=== PATIENT | male | born 1995 | race Two or more races ===

== ENCOUNTER 2023-05-31 02:43 | Emergency (ER) | payer MEDICAID, OTHER ==
[~2023-05-31] VITALS: Ht 190.5 cm; Wt 159.3 kg
[2023-05-31] MEDS ORDERED: IBUP-1455 PO (04:22)
[2023-05-31] MEDS ORDERED: KETOROLAC TROMETH 30 MG/ML 1ML VIAL IM ONE (04:30)
[2023-05-31 04:36] VITALS: BP 137/82; PULSE 83; RESP 18; TEMP 98.6; O2SAT 96
== END 2023-05-31 05:25 | disposition home or self-care (01) ==
LOC: ER 02:43
DX: M54.50 Low back pain, unspecified (principal); Z79.1 Long term (current) use of non-steroidal anti-inflammatories (NSAID)
CPT/HCPCS: 96372; 99283; J1885

== ENCOUNTER 2023-06-05 08:18 | Emergency (ER) | payer MEDICAID ==
[~2023-06-05] VITALS: Ht 190.5 cm; Wt 165.1 kg
[~2023-06-05 08:18] MED LIST: IBUP-1455 PO
[2023-06-05] MEDS ORDERED: KETOROLAC TROMETH 60MG/2ML VIAL IM ONE (09:15)
[2023-06-05] MEDS ORDERED: HYDROcodone-ACET 10/325MG TAB PO ONE (09:15)
[2023-06-05] MEDS ORDERED: GABA-339 PO (09:16)
[2023-06-05] MEDS ORDERED: TRAM50TA2 PO (09:16)
[2023-06-05 09:22] VITALS: O2SAT 98
[2023-06-05 09:39] VITALS: BP 145/92; PULSE 70; RESP 18; O2SAT 98
== END 2023-06-05 09:43 | disposition home or self-care (01) ==
LOC: ER 08:18
DX: M54.16 Radiculopathy, lumbar region (principal); G89.29 Other chronic pain; M54.42 Lumbago with sciatica, left side; M54.41 Lumbago with sciatica, right side
CPT/HCPCS: 96372; 99283; J1885

== ENCOUNTER 2023-06-12 14:48 | Inpatient (IN) | payer MEDICAID ==
[~2023-06-12] VITALS: Ht 188 cm; Wt 164.5 kg
[~2023-06-12 14:48] MED LIST changes: +GABA-339 PO; +TRAM50TA2 PO
[2023-06-12 17:26] LABS: Basophils # (auto) 0 10 ^3/uL (0-0.2); Basophils % (auto) 0.5 % (0.0-2.0); Eosinophils # (auto) 0.1 10 ^3/uL (0-0.8); Eosinophils % (auto) 1.1 % (0.0-7.0); Hematocrit 44.1 % (41.0-53.0); Hemoglobin 14.4 g/dL (13.5-17.5); Lymphocytes # (auto) 2.3 10 ^3/uL (0.4-5.4); Lymphocytes % (auto) 24.3 % (10.0-50.0); Mean Corpuscular Hemoglobin 27.4 pg (28.0-32.0); Mean Corpuscular Hgb Conc. 32.7 g/dL (32.0-36.0); Mean Corpuscular Volume 83.8 fL (80.0-100.0); Monocytes # (auto) 0.5 10 ^3/uL (0-1.3); Monocytes % (auto) 5.8 % (0.0-12.0); Neutrophils # (auto) 6.4 10 ^3/uL (1.6-8.6); Neutrophils % (auto) 68.3 % (37.0-80.0); Nucleated Red Blood Cells % 0.1 %; Red Blood Cells 5.26 10^6/uL (4.5-5.90); Red Cell Distribution Width 14.8 % (11.8-14.3); White Blood Cell 9.3 10^3/uL (4.4-10.8)
[2023-06-12 17:40] LABS: INR 1.01 (0.9-1.15); Prothrombin Time 10.6 sec (9.3-11.8)
[2023-06-12 17:49] LABS: Potassium 4.1 mmol/L (3.5-5.1)
[2023-06-12 17:53] LABS: Albumin 3.6 g/dL (3.4-5.0); BUN/Creatinine Ratio 21.1 (10.0-20.0); Calcium 9.3 mg/dL (8.5-10.1)
[2023-06-12 17:55] LABS: Bilirubin, Total 0.3 mg/dL (0.2-1.0); Total Protein 8.8 g/dL (6.4-8.2)
[2023-06-12 18:23] VITALS: PULSE 76; RESP 12; O2SAT 97
[2023-06-12] MEDS ORDERED: IBUPROFEN 800 MG TAB PO PRN (19:00)
[2023-06-12] MEDS ORDERED: MORPHINE SULFATE INJ 2 MG/ml SYRG IV PRN (19:00)
[2023-06-12 19:30] VITALS: PULSE 63; RESP 16; O2SAT 98
[2023-06-12] MEDS: SODIUM CHLORIDE 0.9% 1,000 ML IV SCH (19:43)
[2023-06-12] MEDS: traMADol HCL 50 MG TAB PO SCH (23:32)
[2023-06-12] MEDS: GABAPENTIN 300 MG CAP PO SCH (23:32)
[2023-06-13] VITALS (7 sets, daily range): BP systolic 106–141; BP diastolic 50–76; PULSE 54–61; RESP 15–20; TEMP 98.1–98.5; O2SAT 94–98
[2023-06-13] MEDS: SODIUM CHLORIDE 0.9% 1,000 ML IV SCH ×3 (03:15→19:15)
[2023-06-13 05:04] LABS: Basophils # (auto) 0 10 ^3/uL (0-0.2); Basophils % (auto) 0.4 % (0.0-2.0); Eosinophils # (auto) 0.1 10 ^3/uL (0-0.8); Eosinophils % (auto) 1.1 % (0.0-7.0); Hematocrit 38.8 % (41.0-53.0); Hemoglobin 13.5 g/dL (13.5-17.5); Lymphocytes # (auto) 2.7 10 ^3/uL (0.4-5.4); Lymphocytes % (auto) 32.5 % (10.0-50.0); Mean Corpuscular Hemoglobin 28.7 pg (28.0-32.0); Mean Corpuscular Hgb Conc. 34.7 g/dL (32.0-36.0); Mean Corpuscular Volume 82.5 fL (80.0-100.0); Monocytes # (auto) 0.5 10 ^3/uL (0-1.3); Monocytes % (auto) 6.4 % (0.0-12.0); Neutrophils # (auto) 4.9 10 ^3/uL (1.6-8.6); Neutrophils % (auto) 59.6 % (37.0-80.0); Red Cell Distribution Width 14.8 % (11.8-14.3); White Blood Cell 8.3 10^3/uL (4.4-10.8)
[2023-06-13 05:25] LABS: Potassium 3.9 mmol/L (3.5-5.1)
[2023-06-13 05:32] LABS: Albumin 3.2 g/dL (3.4-5.0); BUN/Creatinine Ratio 20.5 (10.0-20.0); Bilirubin, Total 0.5 mg/dL (0.2-1.0); Calcium 9.1 mg/dL (8.5-10.1); Total Protein 7.9 g/dL (6.4-8.2)
[2023-06-13] MEDS: ENOXAPARIN SOD 40 MG/0.4 ML SYRINGE SC SCH (10:11)
[2023-06-13] MEDS: PANTOPRAZOLE 40 MG TAB PO SCH (10:12)
[2023-06-13] MEDS: traMADol HCL 50 MG TAB PO SCH ×2 (10:12→21:09)
[2023-06-13] MEDS: GABAPENTIN 300 MG CAP PO SCH ×2 (10:12→21:09)
[2023-06-14] MEDS: SODIUM CHLORIDE 0.9% 1,000 ML IV SCH ×2 (03:15→11:25)
[2023-06-14 05:00] VITALS: BP 111/67; PULSE 61; RESP 19; TEMP 97.7; O2SAT 95
[2023-06-14 09:00] VITALS: BP 127/67; PULSE 62; RESP 17; TEMP 97.8; O2SAT 98
[2023-06-14] MEDS: traMADol HCL 50 MG TAB PO SCH (09:16)
[2023-06-14] MEDS: GABAPENTIN 300 MG CAP PO SCH (09:16)
[2023-06-14] MEDS: ENOXAPARIN SOD 40 MG/0.4 ML SYRINGE SC SCH (09:17)
[2023-06-14] MEDS: PANTOPRAZOLE 40 MG TAB PO SCH (09:17)
[2023-06-14 13:00] VITALS: BP 125/71; PULSE 73; RESP 18; TEMP 98; O2SAT 96
[2023-06-14] MEDS ORDERED: NAP500T PO (16:30)
[2023-06-14 17:01] VITALS: BP 122/60; PULSE 66; RESP 18; TEMP 98.2; O2SAT 99
== END 2023-06-14 18:51 | disposition home or self-care (01) | DRG 347 ==
LOC: ER 14:48 → OVERFLOW 18:54 → CENTRAL 23:39
PROVIDERS: ADMIT Nurse Practitioner Family; ATTEND Internal Medicine
DX: M48.061 Spinal stenosis, lumbar region without neurogenic claudication (principal); E66.01 Morbid (severe) obesity due to excess calories; G89.29 Other chronic pain; Z68.42 Body mass index [BMI] 45.0-49.9, adult
CPT/HCPCS: 36415; 72148; 80053; 85025; 85610; 96360; 96361; G0378

== ENCOUNTER 2024-05-03 12:01 | Inpatient (IN) | payer SELFPAY ==
[~2024-05-03] VITALS: Ht 188 cm; Wt 117.0 kg
[~2024-05-03 12:01] MED LIST changes: +CYCL-837 PO; +NAP500T PO
[2024-05-03 12:22] LABS: Basophils # (auto) 0 10 ^3/uL (0-0.2); Basophils % (auto) 0.5 % (0.0-2.0); Eosinophils # (auto) 0.1 10 ^3/uL (0-0.8); Eosinophils % (auto) 1.2 % (0.0-7.0); Hematocrit 42.8 % (41.0-53.0); Hemoglobin 14.6 g/dL (13.5-17.5); Lymphocytes # (auto) 2.4 10 ^3/uL (0.4-5.4); Lymphocytes % (auto) 26.1 % (10.0-50.0); Mean Corpuscular Hemoglobin 28.6 pg (28.0-32.0); Mean Corpuscular Hgb Conc. 34.1 g/dL (32.0-36.0); Mean Corpuscular Volume 83.8 fL (80.0-100.0); Monocytes # (auto) 0.8 10 ^3/uL (0-1.3); Monocytes % (auto) 8.7 % (0.0-12.0); Neutrophils % (auto) 63.5 % (37.0-80.0); Red Blood Cells 5.11 10^6/uL (4.5-5.90); Red Cell Distribution Width 15.2 % (11.8-14.3); White Blood Cell 9.4 10^3/uL (4.4-10.8)
[2024-05-03 12:35] LABS: Chloride 106 mmol/L (98-107); Potassium 4.1 mmol/L (3.5-5.1); Sodium 138 mmol/L (136-145)
[2024-05-03 12:36] LABS: Anion Gap 5 (5-15); Carbon Dioxide 27 mmol/L (20-30)
[2024-05-03 12:37] LABS: Calcium 9.8 mg/dL (8.5-10.1)
[2024-05-03 12:41] LABS: BUN/Creatinine Ratio 15.7 (10.0-20.0); Blood Urea Nitrogen 13 mg/dL (9-23); Glucose 101 mg/dL (74-106)
[2024-05-03] MEDS: KETOROLAC TROMETH 60MG/2ML VIAL IM ONE (12:56)
[2024-05-03 12:58] VITALS: RESP 19; O2SAT 97
[2024-05-03] MEDS ORDERED: ENOXAPARIN SOD 150 MG/1 ML SYRINGE SC ONE (14:15)
[2024-05-03] MEDS: ENOXAPARIN SOD 150 MG/1 ML SYRINGE SC SCH (14:53)
[2024-05-03] MEDS ORDERED: NITROGLYCERIN 0.4 MG SL TAB SL PRN (15:15)
[2024-05-03] MEDS ORDERED: ONDANSETRON HCL 4 MG/2 ML VIAL IV PRN (15:15)
[2024-05-03] MEDS ORDERED: DOCUSATE SOD 100 MG CAP PO PRN (15:15)
[2024-05-03] MEDS ORDERED: MORPHINE SULFATE INJ 2 MG/ml SYRG IV PRN ×2 (15:15)
[2024-05-03 15:20] VITALS: PULSE 62; RESP 16; O2SAT 96
[2024-05-03] MEDS: IOHEXOL 350 MG/ML 100ML IJ ONE (15:37)
[2024-05-03] MEDS: SODIUM CHLORIDE 0.9% 1,000 ML IV SCH (15:42)
[2024-05-03] MEDS: NEOMYCIN-BACITRACIN-POLYM UNITDOSE PKG TOP OINT TOP ONE (15:42)
[2024-05-03 17:20] VITALS: BP 120/66; PULSE 50; RESP 16; TEMP 98; O2SAT 95
[2024-05-03 18:10] LABS: Urine Amorphous Crystal FEW /hpf (None Seen); Urine Bacteria FEW /hpf (None Seen); Urine Blood Negative /uL (Negative); Urine Clarity Turbid (Clear); Urine Color Colorless (Yellow); Urine Mucus FEW (None Seen); Urine Protein, UAD 1+ (Negative); Urine Specific Gravity 1.028 (1.001-1.035); Urine Urobilinogen 2 mg/dL (Negative); Urine WBC 12 /hpf (0 - 3); Urine WBC Clumps PRESENT /hpf (None Seen); Urine pH 7.5 (5.0-9.0)
[2024-05-03 21:00] VITALS: BP 111/34; PULSE 56; RESP 18; TEMP 98.2; O2SAT 97
[2024-05-04 01:00] VITALS: BP 122/75; PULSE 73; RESP 18; TEMP 97.9; O2SAT 99
[2024-05-04 05:00] VITALS: BP 105/72; PULSE 69; RESP 17; TEMP 98.1; O2SAT 98
[2024-05-04 06:23] LABS: Alanine Aminotransferase 19 U/L (7-40); Albumin 3.8 g/dL (3.2-4.8); Alkaline Phosphatase 52 U/L (46-116); Anion Gap 6 (5-15); Aspartate Aminotransferase 13 U/L (13-40); BUN/Creatinine Ratio 16.9 (10.0-20.0); Bilirubin, Total 0.8 mg/dL (0.2-1.0); Blood Urea Nitrogen 14 mg/dL (9-23); Calcium 9.2 mg/dL (8.7-10.4); Carbon Dioxide 26 mmol/L (20-30); Chloride 107 mmol/L (98-107); Glucose 91 mg/dL (74-106); Potassium 4.1 mmol/L (3.5-5.1); Sodium 139 mmol/L (136-145)
[2024-05-04 06:25] LABS: Basophils # (auto) 0 10 ^3/uL (0-0.2); Basophils % (auto) 0.4 % (0.0-2.0); Eosinophils # (auto) 0.2 10 ^3/uL (0-0.8); Eosinophils % (auto) 2.1 % (0.0-7.0); Hematocrit 38.2 % (41.0-53.0); Hemoglobin 13.1 g/dL (13.5-17.5); Lymphocytes # (auto) 2.6 10 ^3/uL (0.4-5.4); Lymphocytes % (auto) 32.8 % (10.0-50.0); Mean Corpuscular Hemoglobin 28.7 pg (28.0-32.0); Mean Corpuscular Hgb Conc. 34.4 g/dL (32.0-36.0); Mean Corpuscular Volume 83.5 fL (80.0-100.0); Monocytes # (auto) 0.7 10 ^3/uL (0-1.3); Monocytes % (auto) 8.4 % (0.0-12.0); Neutrophils # (auto) 4.4 10 ^3/uL (1.6-8.6); Neutrophils % (auto) 56.3 % (37.0-80.0); Nucleated Red Blood Cells % 0.1 %; Red Blood Cells 4.57 10^6/uL (4.5-5.90); Red Cell Distribution Width 14.5 % (11.8-14.3); White Blood Cell 7.9 10^3/uL (4.4-10.8)
[2024-05-04 08:46] LABS: Amphetamine Screen, Urine Neg (NEGATIVE)
[2024-05-04 08:47] LABS: Barbiturate Scree,Urine Neg (NEGATIVE); Benzodiazephine Screen, Urine Neg (NEGATIVE); Cocaine Screen, Urine Neg (NEGATIVE)
[2024-05-04 08:48] LABS: Cannabinoid Screen, Urine Pos (NEGATIVE); Opiate Scree,Urine Neg (NEGATIVE); Phencyclidine Screen, Urine Neg (NEGATIVE)
[2024-05-04 08:48] LABS: INR 1.08 (0.9-1.15); Magnesium 1.9 mg/dL (1.6-2.6); Partial Thromboplastin Time 34.6 SEC (24.5-34.5); Prothrombin Time 11.4 sec (9.3-11.8)
[2024-05-04 08:50] LABS: Phosphorus 3.5 mg/dL (2.4-5.1)
[2024-05-04 09:20] VITALS: BP 126/77; PULSE 72; RESP 16; TEMP 98.2; O2SAT 95
[2024-05-04] MEDS: PANTOPRAZOLE 40 MG TAB PO ONE (09:28)
[2024-05-04] MEDS ORDERED: NEOMYCIN-BACITRACIN-POLYM UNITDOSE PKG TOP OINT TOP SCH (10:00)
[2024-05-04 12:18] LABS: Free T4 (Free Thyroxine) 1.05 ng/dL (0.89-1.76); T3 Total 1.17 ng/mL (0.60-1.81)
[2024-05-04 12:55] LABS: COVID19 ANTIGEN SOFIA FIA NEGATIVE (NEGATIVE); Rapid Influenza A Negative (Negative); Rapid Influenza B Negative (Negative)
[2024-05-04 13:00] VITALS: BP 144/97; PULSE 61; RESP 17; TEMP 97.6; O2SAT 95
[2024-05-04] MEDS: ERGOCALCIFEROL 50,000 UNIT(1.25MG) CAP PO SCH (15:30)
[2024-05-04] MEDS: CYANOCOBALAMIN 500 MCG TAB PO ONE (15:30)
[2024-05-04] MEDS: CEPHALEXIN 250 MG CAP PO ONE (15:30)
[2024-05-04] MEDS ORDERED: ERGO1CAP23 PO (16:43)
[2024-05-04] MEDS ORDERED: IBUP-1453 PO (16:43)
[2024-05-04] MEDS ORDERED: CEPH250C PO (16:43)
[2024-05-04] MEDS ORDERED: CYAN500T3 PO (16:43)
[2024-05-04 17:00] VITALS: BP 122/63; PULSE 59; RESP 16; TEMP 97.8; O2SAT 95
[2024-05-04] MEDS ORDERED: CEPHALEXIN 250 MG CAP PO SCH (18:00)
[2024-05-05] MEDS ORDERED: PANTOPRAZOLE 40 MG TAB PO SCH (06:00)
[2024-05-05] MEDS ORDERED: CYANOCOBALAMIN 500 MCG TAB PO SCH (10:00)
[2024-05-05] MEDS ORDERED: ENOXAPARIN SOD 40 MG/0.4 ML SYRINGE SC SCH (10:00)
== END 2024-05-04 17:30 | disposition home or self-care (01) | DRG 605 ==
LOC: ER 12:01 → OVERFLOW 15:21 → WEST WING 17:28
PROVIDERS: ADMIT Internal Medicine; ATTEND Internal Medicine
DX: S91.301A Unspecified open wound, right foot, initial encounter (principal); N39.0 Urinary tract infection, site not specified; R07.9 Chest pain, unspecified; M54.40 Lumbago with sciatica, unspecified side; E07.81 Sick-euthyroid syndrome; E66.9 Obesity, unspecified; Z20.822 Contact with and (suspected) exposure to COVID-19; X58.XXXA Exposure to other specified factors, initial encounter; F12.10 Cannabis abuse, uncomplicated; M79.18 Myalgia, other site; Y93.89 Activity, other specified; Y92.89 Other specified places as the place of occurrence of the external cause; Y99.8 Other external cause status; Z68.33 Body mass index [BMI] 33.0-33.9, adult
CPT/HCPCS: 36415; 71045; 71275; 73630; 80048; 80053; 80061; 80307; 81001; 82306; 82607; 83036; 83735; 84100; 84439; 84443; 84480; 85025; 85379; 85610; 85730; 87426; 87804; 93005; 93306; 93970; G0378; J1885

== ENCOUNTER 2024-06-03 07:19 | Emergency (ER) | payer SELFPAY ==
[~2024-06-03] VITALS: Ht 188 cm; Wt 157.7 kg
[~2024-06-03 07:19] MED LIST changes: +CEPH250C PO; +CYAN500T3 PO; -CYCL-837 PO; +ERGO1CAP23 PO; -GABA-339 PO; +IBUP-1453 PO; -IBUP-1455 PO; -NAP500T PO; -TRAM50TA2 PO
[2024-06-03 07:59] VITALS: BP 118/61; PULSE 55; RESP 20; TEMP 98.2; O2SAT 97
[2024-06-03] MEDS ORDERED: IBUP-1455 PO (08:07)
[2024-06-03] MEDS ORDERED: CYCL-837 PO (08:07)
[2024-06-03] MEDS ORDERED: PRED20TA2 PO (08:07)
[2024-06-03] MEDS: methylPREDNISolone SOD SUCC 125 MG/2 ML VL IM ONE (08:25)
[2024-06-03] MEDS: KETOROLAC TROMETH 30 MG/ML 1ML VIAL IM ONE (08:26)
== END 2024-06-03 08:50 | disposition home or self-care (01) ==
LOC: ER 07:19
DX: M54.32 Sciatica, left side (principal); Z79.1 Long term (current) use of non-steroidal anti-inflammatories (NSAID); Z79.899 Other long term (current) drug therapy
CPT/HCPCS: 96372; 99284; J1885; J2919

== ENCOUNTER 2024-06-23 07:08 | Emergency (ER) | payer SELFPAY ==
[~2024-06-23] VITALS: Ht 182.9 cm; Wt 160.6 kg
[~2024-06-23 07:08] MED LIST changes: +CYCL-837 PO; +IBUP-1455 PO; +PRED20TA2 PO
[2024-06-23] MEDS ORDERED: LIDO5DIS21 TOP (08:48)
[2024-06-23] MEDS ORDERED: ACET500T58 PO (08:48)
[2024-06-23] MEDS ORDERED: TRAM50TA2 PO (08:48)
[2024-06-23 09:15] VITALS: BP 147/75; PULSE 66; RESP 18; TEMP 97.4; O2SAT 98
== END 2024-06-23 09:16 | disposition home or self-care (01) ==
LOC: ER 07:08
DX: M54.16 Radiculopathy, lumbar region (principal); Z79.1 Long term (current) use of non-steroidal anti-inflammatories (NSAID); Z79.899 Other long term (current) drug therapy; Z79.52 Long term (current) use of systemic steroids

== ENCOUNTER 2025-05-27 05:53 | Emergency (ER) | payer MEDICAID ==
[~2025-05-27] VITALS: Ht 185.4 cm; Wt 161.4 kg
[~2025-05-27 05:53] MED LIST changes: +ACET500T58 PO; +LIDO5DIS21 TOP; +TRAM50TA2 PO
--- NOTE | 2025-05-27 06:33 | ED.PDOC ---
Musculoskeletal HPI Comments A 29-YEAR-OLD MALE PRESENTS WITH A CHIEF COMPLAINT OF LEFT KNEE PAIN X 2 WEEKS. PATIENT STATES THAT THE PAIN IS SHARP, SHOOTING PAIN AND IS MADE WORSE WHEN AMBULATING. PATIENT RATES CURRENT PAIN 8/10 AT THIS TIME. PATIENT MENTIONS THAT HE TOOK EXCEDRIN FOR PAIN WITHOUT RELIEF. PATIENT IS AMBULATORY WITH A LIMP. PER PT, HE DOES A LOT OF WALKING AND PHYSICAL ACTIVITY EVERYDAY. PT DENIES FALL INJURY, CHEST PAIN, HEADACHE, ABDOMEN PAIN, NAUSEA, VOMITING, DIARRHEA, SOB, OR FEVER. NO OTHER SYMPTOMS OR MODIFYING FACTORS PRESENT AT THIS TIME. Chief Complaint: Lower Extremity Time Seen by MD: 06:30 Primary Care Provider: NONE Reviewed Notes: Nurses Notes, Medications, Allergies Allergies: Coded Allergies: NO KNOWN ALLERGIES (Unverified , 05/31/23) Home Meds Active Scripts Acetaminophen (Acetaminophen) 500 Mg Tab, 500 MG PO TIDP PRN for 10 Days, #30 TAB 0 Refills Prov:NASIM CASAS NP 06/23/24 Lidocaine (LIDODERM 5% TOPICAL PATCH) 1 Patch Ph, 1 PATCH TOP DAILY for 30 Days, #30 PATCH 0 Refills Prov:NASIM CASAS NP 06/23/24 Tramadol Hcl (Tramadol Hcl) 50 Mg Tab, 50 MG PO Q6HPRN PRN for 7 Days, #28 TAB 0 Refills Prov:NASIM CASAS NP 06/23/24 Cyclobenzaprine Hcl (Cyclobenzaprine Hcl) 5 Mg Tab, 1 TAB PO QHSP PRN for 30 Days, #30 TAB 0 Refills Prov:NASIM CASAS NP 06/03/24 Prednisone (Prednisone) 20 Mg Tab, 40 MG PO DAILY for 5 Days, #10 TAB 0 Refills Prov:NASIM CASAS NP 06/03/24 Ibuprofen Micronized (Ibuprofen) 800 Mg Tab, 800 MG PO TIDWMEALS for 14 Days, #42 TAB 0 Refills Prov:NASIM CASAS NP 06/03/24 Ibuprofen (Ibuprofen) 400 Mg Tab, 1 TAB PO Q6HPRN for 10 Days, #40 TAB Prov:ANNETTE CAPUTO RESIDENT 05/04/24 Ergocalciferol (VITAMIN D 42225 UNIT) 50,[place], [address] UNIT PO Q7D for 30 Days, #10 CAP Prov:ANNETTE CAPUTO 05/04/24 Cyanocobalamin (Gnp Vitamin B12) 500 Mcg Tab, 1000 MCG PO DAILY for 30 Days, #60 TAB Prov:ANNETTE CAPUTO 05/04/24 Cephalexin (KEFLEX CAPSULE) 250 Mg Cp, 250 MG PO Q6HR for 5 Days, #20 CAP Prov:ANNETTE CAPUTO 05/04/24 Information Source: Patient Mode of Arrival: Ambulatory Location: Left Extremity Location: Knee Timing: Weeks Prehospital treatment: None Severity: Moderate Able to Move Extremity: Yes Bear Weight: Fully Pain: Moderate Hand Dominance: Right Mechanism: No Trauma Circumstances: Spontaneous Onset of Symptoms: Spontaneous Symptoms: Pain DVT Risk Factors: NONE Last Tetanus: UTD Associated signs and symptoms: Knee pain Past Medical History PAST MEDICAL HISTORY: Denies Surgical History: Denies all surgeries Family History Family History: Reviewed,noncontributory to illness Social History Smoker: Cigarettes Alcohol: Denies ETOH Use Drugs: Denies Drug Use Lives In: Home Constitutional: denies: chills, diaphoresis, fatigue, fever, malaise, sweats, weakness, others EENTM: denies: blurred vision, double vision, ear bleeding, ear discharge, ear drainage, ear pain, ear ringing, eye pain, eye redness, hearing loss, mouth pain, mouth swelling, nasal discharge, nose bleeding, nose congestion, nose pain, photophobia, tearing, throat pain, throat swelling, voice changes, others Respiratory: denies: cough, hemoptysis, orthopnea, SOB at rest, shortness of breath, SOB with excertion, stridor, wheezing, others Cardiovascular: denies: chest pain, dizzy spells, diaphoresis, Dyspnea on exertion, edema, irregular heart beat, left arm pain, lightheadedness, palpitations, PND, syncope, others Gastrointestinal: denies: abdomen distended, abdominal pain, blood streaked bowels, constipated, diarrhea, dysphagia, difficulty swallowing, hematemesis, melena, nausea, poor appetite, poor fluid intake, rectal bleeding, rectal pain, vomiting, others Genitourinary: denies: burning, dysuria, flank pain, frequency, hematuria, incontinence, penile discharge, penile sore, pain, testicle pain, testicle swelling, urgency, others Neurological: denies: dizziness, fainting, headache, left sided numbness, left sided weakness, numbness, paresthesia, pre-existing deficit, right sided numbness, right sided weakness, seizure, speech problems, tingling, tremors, weakness, others Musculoskeletal: reports: joint pain, muscle pain; denies: back pain, gout, joint swelling, muscle stiffness, neck pain, others Integumetry: denies: bruises, change in color, change in hair/nails, dryness, laceration, lesions, lumps, rash, wounds, others Allergic/Immunocompromised: denies: Difficulty Healing, Frequent Infections, Hives, Itching, others Hematologic/Lymphatic: denies: anemia, blood clots, easy bleeding, easy bruising, swollen glands, others Endocrine: denies: excessive hunger, excessive sweating, excessive thirst, excessive urination, flushing, intolerance to cold, intolerance to heat, unexplained weight gain, unexplained weight loss, others Psychiatric: denies: anxiety, bipolar disorder, depression, hopeless, panic disorder, schizophrenia, sleepless, suicidal, others All Other Systems: Reviewed and Negative Physical Exam General Appearance: No Apparent Distress, Obese HEENT: Normal ENT Inspection, PERRL/EOMI, Pharynx Normal, TMs Normal Neck: Full Range of Motion, Non-Tender, Normal, Normal Inspection Respiratory: Chest Non-Tender, Lungs Clear, No Accessory Muscle Use, No Respiratory Distress, Normal Breath Sounds Cardiovascular: No Edema, No JVD, No Murmur, No Gallop, Normal Peripheral Pulses, Regular Rate/Rhythm Breast Exam: Deferred Gastrointestinal: No Organomegaly, Non Tender, No Pulsatile Mass, Normal Bowel Sounds, Soft Genitalia: Deferred Pelvic: Deferred Rectal: Deferred Extremities: Decreased range of motion (SLIGHTLY. ), No calf tenderness, Normal capillary refill, Normal inspection, No pedal edema, Tender (ON LEFT KNEE, NO BONY TENDERNESS, SWELLING AND DEFORMITY. ) Musculoskeletal : Apperance: Normal Neurologic: Alert, flue cleaner II-XII nml as Tested, No Motor Deficits, Normal Affect, Normal Mood, No Sensory Deficits Cerebellar Function: Normal Reflexes: Normal Skin: Dry, Normal Color, Warm Peripheral Pulses: 2+ carotid (R), 2+ carotid (L), 2+ dorsalis pedis (R), 2+ dorsalis pedis (L) Lymphatic: No Adenopathy Was a procedure done? Was a procedure done?: No Differential Diagnosis EXT Differential Diagnosis: Fracture, Sprain, DJD, Contusion, Strain, Arthritis, Bursitis X-Ray, Labs, Meds, VS Vital Signs Date Time Temp Pulse Resp B/P (MAP) Pulse Ox O2 Delivery O2 Flow Rate FiO2 05/27/25 06:45 71 16 96 Room Air 05/27/25 06:45 97.6 71 16 151/92 (111) 96 97.6 05/27/25 05:55 97.6 71 20 151/92 96 97.6 X-Ray, Labs, Meds, VS Comment EXTERNAL MEDICAL RECORDS REVIEWED: [NONE] INDEPENDENT HISTORIANS: [NONE] SOCIAL DETERMINANTS OF HEALTH: [NONE] LABS ORDERED: NONE REVIEWED AND INTERPRETED RESULTS: NONE IMAGING ORDERED: LEFT KNEE X-RAY: NO FRACTURE AND DISLOCATION OF LEFT KNEE, READ BY MYSELF, PENDING RADIOLOGY READING. TREATMENTS ORDERED: TORADOL 60MG IM PROCEDURES PERFORMED: NONE CRITICAL CARE TIME: NONE I HAVE DISCUSSED THE PATIENT WITH THE ATTENDING PHYSICIAN DR. GIBSON AND HE AGREES WITH THE PATIENT'S PLAN OF CARE AND DISPOSITION. BASED ON HISTORY OF PRESENT ILLNESS, AND PHYSICAL EXAM, PATIENT WILL BE DISCHARGED HOME. DISCUSSED PLAN FOR DISCHARGE HOME WITH RX [MOTRIN 800MG]. MEDICATION WARNINGS GIVEN. SHARED DECISION MAKING: DISCUSSED WITH PATIENT THAT THEIR WORKUP WAS NORMAL. PATIENT INSTRUCTED TO FOLLOW UP WITH PRIMARY CARE PROVIDER IN 1-2 DAYS FOR RE- EVALUATION OF SYMPTOMS. PATIENT VERBALIZES UNDERSTANDING TO RETURN TO ED FOR NEW OR WORSENING SYMPTOMS OR IF FOLLOW UP WITH PCP CANNOT BE OBTAINED. PATIENT FEELS COMFORTABLE GOING HOME AT THIS TIME. ALL QUESTIONS ADDRESSED AT TIME OF DISCHARGE. Images Reviewed?: Images reviewed and evaluated by me Time of 1ST Reevaluation: 07:00 Reevaluation 1ST: Unchanged Patient Education/Counseling: Diagnosis, Treatment, Need For Follow Up Family Education/Counseling: Diagnosis, Treatment, No Family Present Medical Screening: No EMC Exist At This Time Departure 1 Departure Time of Disposition: 07:00 Impression: Primary Impression: Internal derangement of left knee Disposition: 01 HOME / SELF CARE / HOMELESS Condition: Stable Additional Instructions: FOLLOW-UP WITH PCP IN 1 TO 2 DAYS. TAKE MEDICATIONS PRESCRIBED. RETURN TO ED FOR ANY NEW OR WORSENING SYMPTOMS. e-Prescriptions Ibuprofen (Ibuprofen) 800 Mg Tab 1 TAB PO TID, #30 TAB Prov: BRYANT BRINK 05/27/25 Discharged With: Self Critical Care Note Critical Care Time?: No Stability Stability form required: No Heart Score Heart Score: Heart Score Response (Comments) Value History N/A 0 EKG N/A 0 Age N/A 0 Risk Factors N/A 0 Troponin N/A 0 Total 0 I personally scribed for BRYANT BRINK ([email or web address]) on 05/27/25 at 06:33. Electronically submitted by Andrew Cobb ([email or web address]). I personally scribed for RBYANT BRINK ([email or web address]) on 05/27/25 at 06:43. Electronically submitted by Andrew Cobb ([email or web address]). BRYANT BRINK May 27, 2025 06:33
[2025-05-27 06:45] VITALS: BP 151/92; PULSE 71; RESP 16; TEMP 97.6; O2SAT 96
[2025-05-27] MEDS: KETOROLAC TROMETH 60MG/2ML VIAL IM ONE (06:51)
[2025-05-27] MEDS ORDERED: IBUP-1456 PO (06:58)
--- NOTE | 2025-05-27 07:06 | DVH ---
EXAM: XY L KNEE 3V XRAY HISTORY: PAIN, NO INJURY COMPARISON: XY R FOOT 3 VIEW XRAY on DOS: 05/03/24 TECHNIQUE: 3 views of the left knee were performed. FINDINGS: No acute fracture is identified about the left knee. No significant joint space narrowing. No evide nce of significant joint effusion. IMPRESSION: Unremarkable radiographs of the left knee.
== END 2025-05-27 07:15 | disposition home or self-care (01) ==
LOC: ER 05:53
DX: M23.92 Unspecified internal derangement of left knee (principal); F17.210 Nicotine dependence, cigarettes, uncomplicated
CPT/HCPCS: 73562; 96372; 99283; J1885

== ENCOUNTER 2025-06-11 05:28 | Emergency (ER) | payer MEDICAID ==
[~2025-06-11] VITALS: Ht 188 cm; Wt 160.5 kg
[~2025-06-11 05:28] MED LIST changes: +IBUP-1456 PO
[2025-06-11 05:29] VITALS: BP 165/105; PULSE 75; RESP 20; TEMP 97.7; O2SAT 96
--- NOTE | 2025-06-11 07:14 | ED.PDOC ---
General HPI Comments A 29-YEAR-OLD MALE WITH A HISTORY OF SCIATICA, AND CHRONIC BACK PAIN PRESENTS TO THE ED WITH A C/C OF RIGHT LOWER BACK PAIN ASSOCIATED RADIATING RIGHT LEG PAIN. PATIENT STATES THAT HIS PAIN HAS BEEN GOING ON FOR THE PAST 2 DAYS, NOTES OF TAKING IBUPROFEN BUT NO ALLEVIATING FACTORS, BUT A WORSENING FACTOR UPON WALKING. PATIENT HAS STARTED TO HAVE HAD A MRIS STUDY DONE IN 2022 IN THE MONTH OF NOVEMBER, AND THE RESULTS WERE REMARKABLE FOR L3, L4, L5 SPINAL STENOSIS. PATIENT DENIES ANY DYSURIA, HEMATURIA, URINARY SYMPTOMS, INABILITY TO VOID, OR ANY OTHER ASSOCIATED, MODIFIERS AT THIS TIME. PT REQUESTS PAIN MEDICATION AT THIS TIME. NO OTHER SYMPTOMS REPORTED AT THIS TIME OF CARE. Chief Complaint: Back Pain Time Seen by MD: 07:09 Primary Care Provider: NONE Reviewed notes: Nurses Notes, Medications, Allergies Allergies: Coded Allergies: NO KNOWN ALLERGIES (Unverified , 05/31/23) Home Meds Active Scripts Ibuprofen (Ibuprofen) 800 Mg Tab, 1 TAB PO TID, #30 TAB Prov:BRYANT BRINK 05/27/25 Acetaminophen (Acetaminophen) 500 Mg Tab, 500 MG PO TIDP PRN for 10 Days, #30 TAB 0 Refills Prov:NASIM CASAS NP 06/23/24 Lidocaine (LIDODERM 5% TOPICAL PATCH) 1 Patch Ph, 1 PATCH TOP DAILY for 30 Days, #30 PATCH 0 Refills Prov:NASIM CASAS NP 06/23/24 Tramadol Hcl (Tramadol Hcl) 50 Mg Tab, 50 MG PO Q6HPRN PRN for 7 Days, #28 TAB 0 Refills Prov:NASIM CASAS NP 06/23/24 Cyclobenzaprine Hcl (Cyclobenzaprine Hcl) 5 Mg Tab, 1 TAB PO QHSP PRN for 30 Days, #30 TAB 0 Refills Prov:NASIM CASAS NP 06/03/24 Prednisone (Prednisone) 20 Mg Tab, 40 MG PO DAILY for 5 Days, #10 TAB 0 Refills Prov:NASIM CASAS NP 06/03/24 Ibuprofen Micronized (Ibuprofen) 800 Mg Tab, 800 MG PO TIDWMEALS for 14 Days, #42 TAB 0 Refills Prov:NASIM CASAS NP 06/03/24 Ibuprofen (Ibuprofen) 400 Mg Tab, 1 TAB PO Q6HPRN for 10 Days, #40 TAB Prov:ANNETTE CAPUTO [facility] 05/04/24 Ergocalciferol (VITAMIN D 47382 UNIT) 50,000 [place], [address] UNIT PO Q7D for 30 Days, #10 CAP Prov:ANNETTE CAPUTO [facility] 05/04/24 Cyanocobalamin (Gnp Vitamin B12) 500 Mcg Tab, 1000 MCG PO DAILY for 30 Days, #60 TAB Prov:ANNETTE CAPUTO [facility] 05/04/24 Cephalexin (KEFLEX CAPSULE) 250 Mg Cp, 250 MG PO Q6HR for 5 Days, #20 CAP Prov:ANNETTE CAPUTO [facility] 05/04/24 Information Source: Patient Mode of Arrival: Wheelchair Severity: Moderate Inability to void: None Timing: Days Duration: Since onset, Intermittent, Days Has not urinated for: Hours Prehospital treatment: None Onset: Spontaneous Symptoms: None History of: None Penile discharge: None Modifying factors: None associated signs and symptoms: Back Pain Past Medical History Past Medical History (Other): CHRONIC LOWER BACK PAIN, DDD OF LOWER BACK Surgical History: Denies all surgeries Family History Family History: Reviewed,noncontributory to illness Social History Smoker: Cigarettes Alcohol: Denies ETOH Use Drugs: Denies Drug Use Lives In: Home Constitutional: denies: chills, diaphoresis, fatigue, fever, malaise, sweats, weakness, others EENTM: denies: blurred vision, double vision, ear bleeding, ear discharge, ear drainage, ear pain, ear ringing, eye pain, eye redness, hearing loss, mouth pain, mouth swelling, nasal discharge, nose bleeding, nose congestion, nose pain, photophobia, tearing, throat pain, throat swelling, voice changes, others Respiratory: denies: cough, hemoptysis, orthopnea, SOB at rest, shortness of breath, SOB with excertion, stridor, wheezing, others Cardiovascular: denies: chest pain, dizzy spells, diaphoresis, Dyspnea on exertion, edema, irregular heart beat, left arm pain, lightheadedness, palpitations, PND, syncope, others Gastrointestinal: denies: abdomen distended, abdominal pain, blood streaked bowels, constipated, diarrhea, dysphagia, difficulty swallowing, hematemesis, melena, nausea, poor appetite, poor fluid intake, rectal bleeding, rectal pain, vomiting, others Genitourinary: denies: burning, dysuria, flank pain, frequency, hematuria, incontinence, penile discharge, penile sore, pain, testicle pain, testicle swelling, urgency, others Neurological: denies: dizziness, fainting, headache, left sided numbness, left sided weakness, numbness, paresthesia, pre-existing deficit, right sided numbness, right sided weakness, seizure, speech problems, tingling, tremors, weakness, others Musculoskeletal: reports: back pain, muscle pain; denies: gout, joint pain, joint swelling, muscle stiffness, neck pain, others Integumetry: denies: bruises, change in color, change in hair/nails, dryness, laceration, lesions, lumps, rash, wounds, others Allergic/Immunocompromised: denies: Difficulty Healing, Frequent Infections, Hives, Itching, others Hematologic/Lymphatic: denies: anemia, blood clots, easy bleeding, easy bruising, swollen glands, others Endocrine: denies: excessive hunger, excessive sweating, excessive thirst, excessive urination, flushing, intolerance to cold, intolerance to heat, unexplained weight gain, unexplained weight loss, others Psychiatric: denies: anxiety, bipolar disorder, depression, hopeless, panic disorder, schizophrenia, sleepless, suicidal, others All Other Systems: Reviewed and Negative Physical Exam General Appearance: No Apparent Distress, Obese HEENT: Normal ENT Inspection, PERRL/EOMI, Pharynx Normal, TMs Normal Neck: Full Range of Motion, Non-Tender, Normal, Normal Inspection Respiratory: Chest Non-Tender, Lungs Clear, No Accessory Muscle Use, No Respiratory Distress, Normal Breath Sounds Cardiovascular: No Edema, No JVD, No Murmur, No Gallop, Normal Peripheral Pulses, Regular Rate/Rhythm Breast Exam: Deferred Gastrointestinal: No Organomegaly, Non Tender, No Pulsatile Mass, Normal Bowel Sounds, Soft Genitalia: Deferred Pelvic: Deferred Rectal: Deferred Extremities: No calf tenderness, Normal capillary refill, Normal inspection, Normal range of motion, Non-tender, No pedal edema Musculoskeletal : Location: Bilateral Extremity Location: Back Apperance: Tenderness: Moderate (TENDERNESS AND MUSCLE SPASM ON LOWER BACK, NO BONY TENDERNESS, SWELLING AND DEFORMITY. ) Neurologic: Alert, wood borer II-XII nml as Tested, No Motor Deficits, Normal Affect, Normal Mood, No Sensory Deficits Cerebellar Function: Normal Reflexes: Normal Skin: Dry, Normal Color, Warm Peripheral Pulses: 2+ carotid (R), 2+ carotid (L) Lymphatic: No Adenopathy Was a procedure done? Was a procedure done?: No Differential Diagnosis Kidney stone (Female): N/A Penile/Scrotal: Urolithiasis Urinary Problem (Male): Urolithiasis, UTI Urinary Problem (Female): N/A X-Ray, Labs, Meds, VS Vital Signs Date Time Temp Pulse Resp B/P (MAP) Pulse Ox O2 Delivery O2 Flow Rate FiO2 06/11/25 05:29 97.7 75 20 165/105 96 97.7 X-Ray, Labs, Meds, VS Comment EXTERNAL MEDICAL RECORDS REVIEWED: [NONE] INDEPENDENT HISTORIANS: [NONE] SOCIAL DETERMINANTS OF HEALTH: [NONE] LABS ORDERED: NONE REVIEWED AND INTERPRETED RESULTS: NONE IMAGING ORDERED: LUMBAR SPINE X-RAY ORDERED AND PENDING: DDD OF LS-SPINE, NO FX AND DISLOCATION, READ BY ME, PENDING RADIOLOGIST READING. TREATMENTS ORDERED: TORADOL 60MG IM INJECTION, 1 NORCO PROCEDURES PERFORMED: NONE CRITICAL CARE TIME: NONE I HAVE DISCUSSED THE PATIENT WITH THE ATTENDING PHYSICIAN DR. HARVEY ] AND HE AGREES WITH THE PATIENT'S PLAN OF CARE AND DISPOSITION. BASED ON HISTORY OF PRESENT ILLNESS, AND PHYSICAL EXAM, PATIENT WILL BE DISCHARGED HOME. DISCUSSED PLAN FOR DISCHARGE HOME WITH RX [ULTRAM AND PREDNISONE ]. MEDICATION WARNINGS GIVEN. SHARED DECISION MAKING: DISCUSSED WITH PATIENT THAT THEIR WORKUP WAS NORMAL. PATIENT INSTRUCTED TO FOLLOW UP WITH PRIMARY CARE PROVIDER IN 1-2 DAYS FOR RE- EVALUATION OF SYMPTOMS. PATIENT VERBALIZES UNDERSTANDING TO RETURN TO ED FOR NEW OR WORSENING SYMPTOMS OR IF FOLLOW UP WITH PCP CANNOT BE OBTAINED. PATIENT FEELS COMFORTABLE GOING HOME AT THIS TIME. ALL QUESTIONS ADDRESSED AT TIME OF DISCHARGE. Images Reviewed?: Images reviewed and evaluated by me Time of 1ST Reevaluation: 08:00 Reevaluation 1ST: Improved Patient Education/Counseling: Diagnosis, Treatment, Need For Follow Up Family Education/Counseling: Diagnosis, Treatment, No Family Present Medical Screening: No EMC Exist At This Time SEPSIS Sepsis Screen Date sepsis recognized/suspect: Jun 11, 2025 Time Sepsis recognized/suspect: 05 Recent Procedure: No On Antibiotic Therapy: No Respiratory Rate >20: Yes Heart Rate >90: No Temp<36 C (96.8 F) or >38.3 C: No SBP <90 or MAP <65 mmHG: No New Acute Mental Status Change: No Is the patient on CPAP, BIPAP,: No Physician Orders Lumbar Spine 3 View (06/11/25 07:08) Hydrocodone-Acet 10/325mg Tab ([place] 10/ (06/11/25 07:45) Vital Signs Date Time Temp Pulse Resp B/P (MAP) Pulse Ox O2 Delivery O2 Flow Rate FiO2 06/11/25 05:29 97.7 75 20 165/105 96 97.7 Departure 1 Departure Time of Disposition: 08:00 Impression: Primary Impression: DDD (degenerative disc disease), lumbosacral Qualified Codes: M51.372 - Other intervertebral disc degeneration, lumbosacral region with discogenic back pain and lower extremity pain Additional Impressions: Lumbar radiculopathy Acute exacerbation of chronic low back pain Pain management Disposition: HOME / SELF CARE / HOMELESS Condition: Stable Additional Instructions: FOLLOW-UP WITH PCP IN 1 TO 2 DAYS. TAKE MEDICATIONS PRESCRIBED. RETURN TO ED FOR ANY NEW OR WORSENING SYMPTOMS. e-Prescriptions Prednisone (Prednisone) 20 Mg Tab 60 MG PO DAILY, #21 TAB Prov: BRYANT BRINK 06/11/25 Tramadol HCl (Tramadol HCl) 50 Mg Tab 50 MG PO BID, #20 TAB Prov: BRYANT BRINK 06/11/25 Discharged With: Self Critical Care Note Critical Care Time?: No Stability Stability form required: No Heart Score Heart Score: Heart Score Response (Comments) Value History N/A 0 EKG N/A 0 Age N/A 0 Risk Factors N/A 0 Troponin N/A 0 Total 0 I personally scribed for BRYANT BRINK ([email or web address]) on 06/11/25 at 07:14. Electronically submitted by Jeronimo Liu ([employer]). I personally scribed for BRYANT BRINK ([email or web address]) on 06/11/25 at 07:16. Electronically submitted by Jeronimo Liu ([email or web address]). I personally scribed for BRYANT BRINK ([email or web address]) on 06/11/25 at 07:32. Electronically submitted by Jeronimo Liu ([email or web address]). BRYANT BRINK Jun 11, 2025 07:14
[2025-06-11] MEDS ORDERED: PRED20TA2 PO (07:34)
[2025-06-11] MEDS ORDERED: TRAM-626 PO (07:34)
[2025-06-11] MEDS: KETOROLAC TROMETH 60MG/2ML VIAL IM ONE (07:36)
--- NOTE | 2025-06-11 07:48 | DVH ---
INDICATION: LOW BACK PAIN TO RIGHT LOWER LEG COMPARISON: MRI LUMBAR SPINE WO CONTRAST on DOS: 06/12/23 TECHNIQUE: 2 views of the lumbar spine were obtained. FINDINGS: The lumbar vertebral alignment is normal. There is intervertebral disc space narrowing at L3-L4 and L4-L5. Slight anterior wedge compression deformity of L5. Lumbar spine vertebral body heights are otherwise maintained. The paravertebral soft tissues are grossly unremarkable. IMPRESSION: 1. Age-indeterminate slight anterior wedge compression deformity of L5.
[2025-06-11] MEDS: HYDROcodone-ACET 10/325MG TAB PO ONE (09:01)
== END 2025-06-11 09:39 | disposition home or self-care (01) ==
LOC: ER 05:28
DX: M51.379 Other intervertebral disc degeneration, lumbosacral region without mention of lumbar back pain or lower extremity pain (principal); M51.17 Intervertebral disc disorders with radiculopathy, lumbosacral region; G89.29 Other chronic pain; M54.50 Low back pain, unspecified; F17.210 Nicotine dependence, cigarettes, uncomplicated
CPT/HCPCS: 72100; 96372; 99283; J1885

== ENCOUNTER 2025-06-19 15:58 | Inpatient (IN) | payer MEDICAID ==
[~2025-06-19] VITALS: Ht 188 cm; Wt 164.0 kg
[~2025-06-19 15:58] MED LIST changes: +TRAM-626 PO
--- NOTE | 2025-06-19 18:37 | ED.PDOC ---
History of Present Illness HPI Comments 29-year-old male with a history of morbid obesity and sciatica brought in by family complaining of right foot and leg numbness for the past 4 days, described as diminished sensation. Patient also reports that his right leg has been giving out" on him, causing him to fall yesterday. Patient states he was amb ulating normally and had normal sensation in his right lower extremity 4 days ago. He states he has a history of sciatica, and is having right-sided low back pain radiating to the right buttock. Denies any headache, vision changes or other focal weakness. Chief Complaint: Lower Extremity Time Seen by MD: 18:08 Primary Care Provider: NONE Reviewed Notes: Nurses Notes, Medications, Allergies Allergies: Coded Allergies: NO KNOWN ALLERGIES (Unverified , 05/31/23) Home Meds Active Scripts Prednisone (Prednisone) 20 Mg Tab, 60 MG PO DAILY, #21 TAB Prov:BRYANT BRINK 06/11/25 Tramadol HCl (Tramadol HCl) 50 Mg Tab, 50 MG PO BID, #20 TAB Prov:BRYANT BRINK 06/11/25 Ibuprofen (Ibuprofen) 800 Mg Tab, 1 TAB PO TID, #30 TAB Prov:BRYANT BRINK 05/27/25 Acetaminophen (Acetaminophen) 500 Mg Tab, 500 MG PO TIDP PRN for 10 Days, #30 TAB 0 Refills Prov:NASIM CASAS NP 06/23/24 Lidocaine (LIDODERM 5% TOPICAL PATCH) 1 Patch Ph, 1 PATCH TOP DAILY for 30 Days, #30 PATCH 0 Refills Prov:NASIM CASAS NP 06/23/24 Tramadol Hcl (Tramadol Hcl) 50 Mg Tab, 50 MG PO Q6HPRN PRN for 7 Days, #28 TAB 0 Refills Prov:NASIM CASAS NP 06/23/24 Cyclobenzaprine Hcl (Cyclobenzaprine Hcl) 5 Mg Tab, 1 TAB PO QHSP PRN for 30 Days, #30 TAB 0 Refills Prov:NASIM CASAS NP 06/03/24 Prednisone (Prednisone) 20 Mg Tab, 40 MG PO DAILY for 5 Days, #10 TAB 0 Refills Prov:NASIM CASAS NP 06/03/24 Ibuprofen Micronized (Ibuprofen) 800 Mg Tab, 800 MG PO TIDWMEALS for 14 Days, #42 TAB 0 Refills Prov:NASIM CASAS BERRY PICKER 06/03/24 Ibuprofen (Ibuprofen) 400 Mg Tab, 1 TAB PO Q6HPRN for 10 Days, #40 TAB Prov:ANNETTE CAPUTO RESIDENT 05/04/24 Ergocalciferol (VITAMIN D 05202 UNIT) 50,000 [place], [address] UNIT PO Q7D for 30 Days, #10 CAP Prov:ANNETTE CAPUTO RESIDENT 05/04/24 Cyanocobalamin (Gnp Vitamin B12) 500 Mcg Tab, 1000 MCG PO DAILY for 30 Days, #60 TAB Prov:ANNETTE CAPUTO RESIDENT 05/04/24 Cephalexin (KEFLEX CAPSULE) 250 Mg Cp, 250 MG PO Q6HR for 5 Days, #20 CAP Prov:ANNETTE CAPUTO RESIDENT 05/04/24 Mode of Arrival: Ambulatory Past Medical History Past Medical History (Other): Morbid obesity, sciatica Surgical History: Denies all surgeries Family History Family History: Reviewed,noncontributory to illness Social History Smoker: Cigarettes Alcohol: Denies ETOH Use Drugs: Denies Drug Use Lives In: Home All Other Systems: Reviewed and Negative (Comprehensive systems review obtained and negative except for what is stated in the HPI.) Physical Exam General Appearance: No Apparent Distress, Obese HEENT: Other (Pupils and face symmetric. Moist mucous membranes.) Neck: Full Range of Motion, Non-Tender, Normal Inspection, Supple Respiratory: Lungs Clear, No Accessory Muscle Use, No Respiratory Distress, Normal Breath Sounds Cardiovascular: No Edema, No JVD, Regular Rate/Rhythm Breast Exam: Deferred Gastrointestinal: Non Tender, Soft Genitalia: Deferred Pelvic: Deferred Rectal: Deferred Extremities: Normal inspection, Normal range of motion, Non-tender, No pedal edema Neurologic: Alert (Oriented x4), Motor Weakness (Right foot), Sensory Deficit (Diminished sensation to light touch right foot up to proximal leg) Cerebellar Function: NOT DONE Reflexes: NOT DONE Skin: Dry, Normal Color, Warm Lymphatic: NOT DONE Was a procedure done? Was a procedure done?: No Differential Dx Considerations may include: [facility] herniation/nerve compression, cauda equina, CVA, TIA, other peripheral neuropathy, among other X-Ray, Labs, Meds, VS Vital Signs Date Time Temp Pulse Resp B/P (MAP) Pulse Ox O2 Delivery O2 Flow Rate FiO2 06/19/25 19:45 98.1 73 18 138/98 (111) 95 98.1 06/19/25 19:45 73 18 95 Room Air* 0 21 06/19/25 15:59 97.9 80 18 150/99 97 97.9 Lab Test 06/19/25 18:54 Range/Units White Blood Count 11.4 H 4.4-10.8 10^3/uL Red Blood Count 5.58 4.5-5.90 10^6/uL Hemoglobin 16.0 13.5-17.5 g/dL Hematocrit 47.5 41.0-53.0 % Mean Corpuscular Volume 85.1 80.0-100.0 fL Mean Corpuscular Hemoglobin 28.6 28.0-32.0 pg Mean Corpuscular Hemoglobin Concent 33.6 32.0-36.0 g/dL Red Cell Distribution Width 14.3 11.8-14.3 % Platelet Count 314 140-450 10^3/uL Mean Platelet Volume 8.3 6.9-10.8 fL Neutrophils (%) (Auto) 56.0 37.0-80.0 % Lymphocytes (%) (Auto) 32.0 10.0-50.0 % Monocytes (%) (Auto) 10.0 0.0-12.0 % Eosinophils (%) (Auto) 1.5 0.0-7.0 % Basophils (%) (Auto) 0.5 0.0-2.0 % Neutrophils # (Auto) 6.4 1.6-8.6 10 ^3/uL Lymphocytes # (Auto) 3.6 0.4-5.4 10 ^3/uL Monocytes # (Auto) 1.1 0-1.3 10 ^3/uL Eosinophils # (Auto) 0.2 0-0.8 10 ^3/uL Basophils # (Auto) 0.1 0-0.2 10 ^3/uL Nucleated Red Blood Cells 0.0 % Sodium Level 140 136-145 mmol/L Potassium Level 4.0 3.5-5.1 mmol/L Chloride Level 106 98-107 mmol/L Carbon Dioxide Level 24 20-31 mmol/L Anion Gap 10 5-15 Blood Urea Nitrogen 18 9-23 mg/dL Creatinine 0.88 0.700-1.30 mg/dL Glomerular Filtration Rate Calc 119 >90 mL/min BUN/Creatinine Ratio 20.5 H 10.0-20.0 Serum Glucose 95 74-106 mg/dL Calcium Level 9.2 8.7-10.4 mg/dL Current Medications Medications (Trade) Dose Ordered Sig/Jarrod Route Start Time Stop Time Status Last Admin Acetaminophen/ Hydrocodone Bitart (Brohard 5/325MG Tab) 2 tab ONCE ONCE PO 06/19/25 18:30 06/19/25 18:33 DC 06/19/25 19:34 [place] [address] Ph: [phone] DIAGNOSTIC IMAGING Diagnostic Imaging Report : [id number] Signed PATIENT: GILBERTO KAUR ACCT: [id number] UNIT: [id number] : 1995 LOC: ER ROOM / BED: / AGE / SEX: 29 / M ADM STATUS: REG ER SERVICE 1830 ORDERING PHYSICIAN: SHAAN MASON MD PROCEDURE(s): LS2CT - LS SPINE WO CONTRAST REASON: low back pain RLE weak, numb ORDER NUMBER(s): [id number], ACCESSION NUMBER(s): [id number] EXAM: CT LS SPINE WO CONTRAST INDICATION: low back pain RLE weak, numb TECHNIQUE: Axial images of the lumbar spine have been obtained along with coronal and sagittal reformatted images. CT scans at this facility use dose modulation, iterative reconstruction, and/or weight based dosing when appropriat e to reduce radiation dose to as low as reasonably achievable. COMPARISON: XY LUMBAR SPINE 3 VIEW on DOS: 06/11/25, MRI LUMBAR SPINE WO CONTRAST on DOS: 06/12/23 Dose: CTDIvol: 36.46 mGy, DLP: 1304.03 mGy.cm FINDINGS: There is no acute displaced fracture. There are degenerative changes of the lumbar spine characterized by endplate osteophytosis and intervertebral disc space narrowing. The paraspinal soft tissues are unremarkable. LEVEL BY LEVEL DISCUSSION BELOW: T12-L1: Unremarkable. L1-L2: Unremarkable. L2-L3: There is a disc protrusion with associated osteophyte which effaces the thecal sac and contributes to severe spinal stenosis. There is facet arthropathy. L3-L4: There is a disc protrusion with associated osteophyte which effaces the thecal sac. There is prominent facet arthropathy. There is severe spinal canal stenosis and at least mild bilateral neural foraminal stenosis. L4-L5: There is a disc protrusion with associated osteophyte which effaces thecal sac. There is prominent facet arthropathy. There is severe spinal canal stenosis and at least mild bilateral neural foraminal stenosis. L5-S1: There is a disc protrusion with associated osteophyte which effaces the thecal sac. There is facet arthropathy. There is at least moderate bilateral neural foraminal stenosis. IMPRESSION: 1. Multilevel severe spinal canal stenosis. Please see above discussion. MRI of the lumbar spine is suggested in further evaluation. ATED BY: VEDA JORGE MD DICTATED DATE/TIME: 06/19/251910 SIGNED BY: VEDA JORGE MD SIGNED DATE/TIME: 06/19/251910 CC: [place] [address] Ph: [phone] DIAGNOSTIC IMAGING Diagnostic Imaging Report : [id number] Signed PATIENT: GILBERTO KAUR ACCT: [id number] UNIT: [id number] : 1995 LOC: ER ROOM / BED: / AGE / SEX: 29 / M ADM STATUS: REG ER SERVICE 1830 ORDERING PHYSICIAN: SHAAN MASON MD PROCEDURE(s): HWOCT - HEAD WITHOUT CONTRAST REASON: RLE weakness, numbness ORDER NUMBER(s): [id number], ACCESSION NUMBER(s): [id number] EXAM: CT HEAD WITHOUT CONTRAST INDICATION: RLE weakness, numbness TECHNIQUE: CT of the head without intravenous contrast. Radiation dose : Head: CT Dose: CTDI volume is 69.44 mGy. Dose-length product is 1.71 mGy*cm The dose indicators for CT are the volume computed tomography (CT) dose index (CTDIvol) and the dose length product (DLP), and are measured in units of mGy and mGy-cm, respectively. These indicators are not patient dose, but values generated from the CT scanner acquisition factors. The report includes radiation exposure data for exposures received during this examination. COMPARISON: None FINDINGS: May Motion artifact degrades fine detail. The cerebral parenchyma appears to be normal configuration and attenuation. The ventricles, cisterns, and sulci appear age-appropriate. There is no evidence for acute territorial infarct, hemorrhage, or mass effect. The orbits are normal. Mild mucosal thickening along the floor of the maxillary antra. The paraspinal soft tissues appear within normal limits. IMPRESSION: 1. No acute territorial infarct, intracranial hemorrhage, or mass effect. 2. If clinical symptoms persist, MRI may be beneficial in further evaluation. Radiation optimization: All CT scans at this facility use at least one of these dose optimization techniques: Automated exposure control mA and/or kV adjustment per patient size (includes targeted exams where dose is matched to clinical indication) or iterative reconstruction. HS:Y ATED BY: VEDA JORGE MD DICTATED DATE/TIME: 06/19/251906 SIGNED BY: VEDA JORGE MD SIGNED DATE/TIME: 06/19/251906 CC: X-Ray, Labs, Meds, VS Comment 29-year-old male with a history of morbid obesity and sciatica brought in by family complaining of right foot and leg numbness for the past 4 days, described as diminished sensation. Vitals remarkable for BP 150/99 Exam remarkable for diminished light touch sensation from the proximal leg down to the foot, motor weakness of the right foot Rhythm strip independently interpreted by me: Sinus rhythm, rate eighty, no ect opy. CT head unremarkable CT lumbar spine IMPRESSION: 1. Multilevel severe spinal canal stenosis. Please see above discussion. MRI of the lumbar spine is suggested in further evaluation. CBC remarkable for WBC 11.4, basic metabolic panel unremarkable. UA pending. Patient treated with the following in the ED: Brohard 5/325 mg 2 tabs p.o. On re-evaluation, pain has improved. Vitals were stable. No new neurologic changes. Plan is to admit the patient for spine MRI and ortho/spine evaluation. Time of 1ST Reevaluation: 18:38 Reevaluation 1ST: Unchanged Patient Education/Counseling: Diagnosis, Treatment, Need For Follow Up Family Education/Counseling: No Family Present SEPSIS Sepsis Screen Date sepsis recognized/suspect: Jun 19, 2025 Time Sepsis recognized/suspect: 1602 Recent Procedure: No On Antibiotic Therapy: No Respiratory Rate >20: No Heart Rate >90: No Temp<36 C (96.8 F) or >38.3 C: No SBP <90 or MAP <65 mmHG: No New Acute Mental Status Change: No Is the patient on CPAP, BIPAP,: No Physician Orders Urinalysis (06/19/25 18:30) Head Without Contrast (06/19/25 18:30) Ls Spine Wo Contrast (06/19/25 18:30) Vital Signs Date Time Temp Pulse Resp B/P (MAP) Pulse Ox O2 Delivery O2 Flow Rate FiO2 06/19/25 19:45 98.1 73 18 138/98 (111) 95 98.1 06/19/25 19:45 73 18 95 Room Air* 0 21 06/19/25 15:59 97.9 80 18 150/99 97 97.9 Laboratory Tests Test 06/19/25 18:54 White Blood Count 11.4 10^3/uL (4.4-10.8) H Medications Medications Dose Ordered Sig/Jarrod Route Start Time Stop Time Status Last Admin Dose Admin Acetaminophen/ Hydrocodone Bitart 2 tab ONCE ONCE PO 06/19/25 18:30 06/19/25 18:33 DC 06/19/25 19:34 Departure 1 Departure Time of Disposition: 21:26 Impression: Primary Impression: Spinal stenosis Additional Impressions: Right leg numbness Right leg weakness Disposition: ADMITTED INPATIENT Admit to: Med Surg Condition: Guarded Critical Care Note Critical Care Time?: No Stability Stability form required: No Heart Score Heart Score: Heart Score Response (Comments) Value History N/A 0 EKG N/A 0 Age N/A 0 Risk Factors N/A 0 Troponin N/A 0 Total 0 I personally scribed for SHAAN MASON MD ([email or web address]) on 06/19/25 at 19:18. Electronically submitted by Jaziel Truong ([email or web address]). I personally scribed for SHAAN MASON MD ([email or web address]) on 06/19/25 at 19:23. Electronically submitted by Jaziel Truong ([email or web address]). SHAAN MASON MD Jun 19, 2025 18:37
[2025-06-19 19:10] LABS: Hematocrit 47.5 % (41.0-53.0); Hemoglobin 16.0 g/dL (13.5-17.5); Mean Corpuscular Hemoglobin 28.6 pg (28.0-32.0); Mean Corpuscular Volume 85.1 fL (80.0-100.0); Nucleated Red Blood Cells % 0.0 %
--- NOTE | 2025-06-19 19:10 | DVH ---
EXAM: CT HEAD WITHOUT CONTRAST INDICATION: RLE weakness, numbness TECHNIQUE: CT of the head without intravenous contrast. Radiation dose : Head: CT Dose: CTDI volume is 69.44 mGy. Dose-length product is 1.71 mGy*cm The dose indicators for CT are the volume computed tomography (CT) dose index (CTDIvol) and the dose length product (DLP), and are measured in units of mGy and mGy-cm, respectively. These indicators are not patient dose, but values generated from the CT scanner acquisition factors. The report includes radiation exposure data for exposures received during this examination. COMPARISON: None FINDINGS: May Motion artifact degrades fine detail. The cerebral parenchyma appears to be normal configuration and attenuation. The ventricles, cisterns , and sulci appear age-appropriate. There is no evidence for acute territorial infarct, hemorrhage, or mass effect. The orbits are normal. Mild mucosal thickening along the floor of the maxillary antra. The paraspin al soft tissues appear within normal limits. IMPRESSION: 1. No acute territorial infarct, intracranial hemorrhage, or mass effect. 2. If clinical symptoms persist, MRI may be beneficial in further evaluation. Radiation optimization: All CT scans at this facility use at least one of these dose optimization meliza hniques: Automated exposure control mA and/or kV adjustment per patient size (includes targeted exams where dose is matched to clinical indication) or iterative reconstruction. HS:Y
--- NOTE | 2025-06-19 19:14 | DVH ---
EXAM: CT LS SPINE WO CONTRAST INDICATION: low back pain RLE weak, numb TECHNIQUE: Axial images of the lumbar spine have been obtained along with coronal and sagittal reform atted images. CT scans at this facility use dose modulation, iterative reconstruction, and/or weight based dosing when appropriate to reduce radiation dose to as low as reasonably achievable. COMPARISON: XY LUMBAR SPINE 3 VIEW on DOS: 06/11/25, MRI LUMBAR SPINE WO CONTRAST on DOS: 06/12/23 Dose: CTDIvol: 36.46 mGy, DLP: 1304.03 mGy.cm FINDINGS: There is no acute displaced fracture. There are degenerative changes of the lumbar spine characteriz ed by endplate osteophytosis and intervertebral disc space narrowing. The paraspinal soft tissues are unremarkable. LEVEL BY LEVEL DISCUSSION BELOW: T12-L1: Unremarkable. L1-L2: Unremarkable. L2-L3: There is a disc protrusion with associated osteophyte which effaces the thecal sac and contri butes to severe spinal stenosis. There is facet arthropathy. L3-L4: There is a disc protrusion with associated osteophyte which effaces the thecal sac. There is p rominent facet arthropathy. There is severe spinal canal stenosis and at least mild bilateral neural foraminal stenosis. L4-L5: There is a disc protrusion with associated osteophyte which effaces thecal sac. There is prom inent facet arthropathy. There is severe spinal canal stenosis and at least mild bilateral neural fo raminal stenosis. L5-S1: There is a disc protrusion with associated osteophyte which effaces the thecal sac. There is f acet arthropathy. There is at least moderate bilateral neural foraminal stenosis. IMPRESSION: 1. Multilevel severe spinal canal stenosis. Please see above discussion. MRI of the lumbar spine is suggested in further evaluation.
[2025-06-19 19:19] LABS: Chloride 106 mmol/L (98-107); Potassium 4.0 mmol/L (3.5-5.1); Sodium 140 mmol/L (136-145)
[2025-06-19 19:20] LABS: Anion Gap 10 (5-15); Calcium 9.2 mg/dL (8.7-10.4); Carbon Dioxide 24 mmol/L (20-31)
[2025-06-19 19:25] LABS: BUN/Creatinine Ratio 20.5 (10.0-20.0); Blood Urea Nitrogen 18 mg/dL (9-23); Glucose 95 mg/dL (74-106)
[2025-06-19] MEDS: HYDROcodone-ACET 5/325MG TAB PO ONE (19:34)
[2025-06-19 19:45] VITALS: PULSE 73; RESP 18; O2SAT 95
[2025-06-19] MEDS ORDERED: DOCUSATE SOD 100 MG CAP PO PRN (21:45)
[2025-06-19] MEDS ORDERED: ONDANSETRON HCL 4 MG/2 ML VIAL IV PRN (21:45)
[2025-06-19] MEDS ORDERED: ACETAMINOPHEN 325 MG TAB PO PRN (21:45)
[2025-06-19] MEDS: SODIUM CHLOR 0.9% PF (SALINE LOCK) 10ML VIAL/SYR IV SCH (22:20)
--- NOTE | 2025-06-19 22:26 | DVHHP2 ---
History of Present Illness History of Present Illness The patient is a 29-year-old male with a past medical history of possible lumbar radiculopathy and sciatica, who presents with a chief complaint of worsening numbness in the right lower extremity, primarily from the knee to the toes. Symptoms began approximately four days ago and have progressively worsened. The patient reports that the numbness is affecting his mobility, and a few days ago, his leg gave out, resulting in a minor fall. He is currently using a cane for support due to impaired ambulation. He also reports a history of sciatica, with pain that typically radiates down both legs and worsens with forward flexion of the lower back. The patient denies any motor weakness, bowel or bladder dysfunction, incontinence, fever, chills, chest pain, recent diarrhea, or other associated symptoms Review of Systems Constitutional: No: Fever, Chills, Sweats, Weakness, Malaise, Other Eyes: No: Pain, Vision change, Conjunctivae inflammation, Eyelid inflammation, Other, Redness ENT: No: Ear pain, Ear discharge, Nose pain, Nose discharge, Nose congestion, Mouth pain, Mouth swelling, Throat pain, Throat swelling, Other Respiratory: No: Cough, Dry, Shortness of breath, SOB with excertion, Wheezing, Hemoptysis, Pleuritic Pain, Sputum, Wheezing, Other Cardiovascular: No: Chest Pain, Palpitations, Orthopnea, Paroxysmal Noc. Dyspnea, Edema, Lt Headedness, Other Gastrointestinal: No: Nausea, Vomiting, Abdominal Pain, Diarrhea, Constipation, Melena, Hematochezia, Other Genitourinary: No Dysuria, No Frequency, No Incontinence, No Hematuria, No Retention, No Other Musculoskeletal: other, back pain Skin: No: Rash, Lesions, Jaundice, Bruising, Other Neurological: No: Weakness, Numbness, Incoordination, Change in speech, Confusion, Seizures, Other Allergies: Coded Allergies: NO KNOWN ALLERGIES (Unverified , 05/31/23) Medications Current Medications Medications Dose Ordered Sig/Jarrod Route Start Time Stop Time Status Last Admin Dose Admin Sodium Chloride 10 ml Q8HR IV 06/19/25 22:00 Acetaminophen/ Hydrocodone Bitart 1 tab Q4HP PRN PO 06/19/25 21:45 Ondansetron HCl 4 mg Q4HP PRN IV 06/19/25 21:45 Docusate Sodium 100 mg BIDPRN PRN PO 06/19/25 21:45 Acetaminophen 650 mg Q6HP PRN PO 06/19/25 21:45 Exam Vital Signs Vital Signs Date Time Temp Pulse Resp B/P (MAP) Pulse Ox O2 Delivery O2 Flow Rate FiO2 06/19/25 19:45 98.1 73 18 138/98 (111) 95 98.1 06/19/25 19:45 Room Air* 0 21 General Appearance: Alert, Oriented X3, Cooperative HEENT: Atraumatic, PERRLA, EOMI, Mucous membr. moist/pink Respiratory: Clear to auscultation, Normal air movement Cardiovascular: Normal S1, Normal S2 Abdominal: Normal bowel sounds, Soft, No tenderness Extremities: No clubbing, No cyanosis Skin: No rashes, No breakdown Neuro: Normal gait, Normal speech, Strength at 5/5 X4 ext, Cranial nerves 3-12 NL, Other (Leg raise test, likely positive. The patient has back pain with leaning forward or raised of legs.) Labs/Xrays Labs Test 06/19/25 18:54 Range/Units White Blood Count 11.4 H 4.4-10.8 10^3/uL Red Blood Count 5.58 4.5-5.90 10^6/uL Hemoglobin 16.0 13.5-17.5 g/dL Hematocrit 47.5 41.0-53.0 % Mean Corpuscular Volume 85.1 80.0-100.0 fL Mean Corpuscular Hemoglobin 28.6 28.0-32.0 pg Mean Corpuscular Hemoglobin Concent 33.6 32.0-36.0 g/dL Red Cell Distribution Width 14.3 11.8-14.3 % Platelet Count 314 140-450 10^3/uL Mean Platelet Volume 8.3 6.9-10.8 fL Neutrophils (%) (Auto) 56.0 37.0-80.0 % Lymphocytes (%) (Auto) 32.0 10.0-50.0 % Monocytes (%) (Auto) 10.0 0.0-12.0 % Eosinophils (%) (Auto) 1.5 0.0-7.0 % Basophils (%) (Auto) 0.5 0.0-2.0 % Neutrophils # (Auto) 6.4 1.6-8.6 10 ^3/uL Lymphocytes # (Auto) 3.6 0.4-5.4 10 ^3/uL Monocytes # (Auto) 1.1 0-1.3 10 ^3/uL Eosinophils # (Auto) 0.2 0-0.8 10 ^3/uL Basophils # (Auto) 0.1 0-0.2 10 ^3/uL Nucleated Red Blood Cells 0.0 % Sodium Level 140 136-145 mmol/L Potassium Level 4.0 3.5-5.1 mmol/L Chloride Level 106 98-107 mmol/L Carbon Dioxide Level 24 20-31 mmol/L Anion Gap 10 5-15 Blood Urea Nitrogen 18 9-23 mg/dL Creatinine 0.88 0.700-1.30 mg/dL Glomerular Filtration Rate Calc 119 >90 mL/min BUN/Creatinine Ratio 20.5 H 10.0-20.0 Serum Glucose 95 74-106 mg/dL Calcium Level 9.2 8.7-10.4 mg/dL SEPSIS Sepsis Screen Date sepsis recognized/suspect: Jun 19, 2025 Time Sepsis recognized/suspect: 1601 Recent Procedure: No On Antibiotic Therapy: No Respiratory Rate >20: No Heart Rate >90: No Temp<36 C (96.8 F) or >38.3 C: No SBP <90 or MAP <65 mmHG: No New Acute Mental Status Change: No Is the patient on CPAP, BIPAP,: No Physician Orders Urinalysis (06/19/25 18:30) Head Without Contrast (06/19/25 18:30) Ls Spine Wo Contrast (06/19/25 18:30) * Neurology Consult (06/19/25 21:45) Allergies (06/19/25 21:45) Code Status (06/19/25 21:45) Sodium Chloride Lock (Saline Lock Ns) (06/19/25 22:00) Oxygen Per Hour (06/19/25 21:45) Hydrocodone-Acet 5/325mg Tab ([place] 5/32 (06/19/25 21:45) Ondansetron Hcl (Zofran) (06/19/25 21:45) Docusate Sodium Capsule (Colace Capsule) (06/19/25 21:45) Complete Blood Count (06/20/25 04:00) Comprehensive Metabolic Panel (06/20/25 04:00) Cardiac Diet-2gna,Lofat,Lochol (06/20/25 Breakfast) Condition: Serious (06/19/25 21:45) Acetaminophen Tablet (Tylenol Tablet) (06/19/25 21:45) Bedrest With Bathroom Privileg (06/19/25 21:45) Sequential Compression Device (06/19/25 ) Admit (06/19/25 22:03) Lumbar Spine Wo Contrast (06/19/25 22:04) ConsultdrSergio Swenson(Spine) (06/19/25 22:05) Chest Xray 1 View (06/19/25 22:07) Vitamin B12 (06/19/25 22:07) Vital Signs Date Time Temp Pulse Resp B/P (MAP) Pulse Ox O2 Delivery O2 Flow Rate FiO2 06/19/25 19:45 98.1 73 18 138/98 (111) 95 98.1 06/19/25 19:45 73 18 95 Room Air* 0 21 06/19/25 15:59 97.9 80 18 150/99 97 97.9 Laboratory Tests Test 06/19/25 18:54 White Blood Count 11.4 10^3/uL (4.4-10.8) H Medications Medications Dose Ordered Sig/Jarrod Route Start Time Stop Time Status Last Admin Dose Admin Acetaminophen/ Hydrocodone Bitart 2 tab ONCE ONCE PO 06/19/25 18:30 06/19/25 18:33 DC 06/19/25 19:34 2 TAB Assessment/Plan Assessment/Plan Severe lumbar spinal stenosis Neurogenic claudication Sciatica Morbid obesity BMI 46.7 Chronic back pain likely due to severe lumbar spinal stenosis Right lower extremity numbness likely related to lumbar spinal stenosis leucocytosis, no neutrophile shift. likely reactive. No SIRS Plan/recommendation -spine surgery consultation given severe lumbar spinal stenosis -MRI of the spine without contrast -PT evaluation based on surgeon's recommendation -pain management -the patient is ambulatory no need for DVT prophylaxis Goals of care discussed greater than 24 m, full code status. Plan discussed with Dr. Guzmán Plan discussed with: Patient, Other (RN) My Orders Orders - MEERA RAMOS RESIDENT Procedure Category Date Status Time Admit ADMIT 06/19/25 Transmitted 22:03 Lumbar Spine Wo MRI 06/19/25 Logged Contrast 22:04 Consultdr. Gonzalez CONS 06/19/25 Transmitted [place](Spine) 22:05 Chest Xray 1 View XY 06/19/25 Logged 22:07 Vitamin B12 LAB 06/19/25 In Process 22:07 Date of Service: Jun 19, 2025 Billing Provider: ERASMO GUZMÁN MD Common Visit Codes: [id number] INP/OBS CARE (HIGH) MEERA RAMOS RESIDENT Jun 19, 2025 22:26
[2025-06-19] MEDS: cefTRIAXone 1GM/50ML D5W 50 ML IV ONE (22:36)
--- NOTE | 2025-06-19 23:25 | DVH ---
CHEST RADIOGRAPH Indication: preop Technique: 1 view Comparison: XY CHEST PORTABLE on DOS: 05/03/24 FINDINGS: Lines and Tubes: None Lungs: No focal consolidation. Pleura: No effusion or pneumothorax. Cardiomediastinal contours: Unremarkable. Other: No acute osseous abnormality. IMPRESSION: 1. No acute cardiopulmonary abnormality.
[2025-06-20 01:23] LABS: Urine Protein, UAD Negative (Negative)
[2025-06-20 03:58] LABS: Hematocrit 48.3 % (41.0-53.0); Hemoglobin 16.7 g/dL (13.5-17.5); Mean Corpuscular Hemoglobin 29.4 pg (28.0-32.0); Mean Corpuscular Volume 85.0 fL (80.0-100.0); Nucleated Red Blood Cells % 0.1 %
[2025-06-20 04:10] LABS: Alanine Aminotransferase 33 U/L (7-40); Albumin 4.7 g/dL (3.2-4.8); Alkaline Phosphatase 64 U/L (46-116); Anion Gap 12 (5-15); BUN/Creatinine Ratio 16.9 (10.0-20.0); Blood Urea Nitrogen 15 mg/dL (9-23); Calcium 9.5 mg/dL (8.7-10.4); Carbon Dioxide 24 mmol/L (20-31); Chloride 102 mmol/L (98-107); Glucose 100 mg/dL (74-106); Potassium 4.2 mmol/L (3.5-5.1); Sodium 138 mmol/L (136-145); Total Protein 7.9 g/dL (5.7-8.2)
[2025-06-20 04:11] LABS: Bilirubin, Total 0.7 mg/dL (0.2-1.0)
[2025-06-20] MEDS: HYDROcodone-ACET 5/325MG TAB PO PRN (05:31)
[2025-06-20 07:30] VITALS: RESP 18; O2SAT 95
[2025-06-20] MEDS: ACETAMINOPHEN 325 MG TAB PO SCH (13:35)
--- NOTE | 2025-06-20 15:15 | DVHPNRES ---
Progress Note Date Seen: Jun 20, 2025 Resident Creating Document: OSCAR JOHNSON RESIDENT Medical Necessity Reason Pt with a Central, PICC or Fol: No Subjective Review of Systems Brief history on admission: Tee Diaz is a 29-year-old male with a past medical history of possible lumbar radiculopathy and sciatica, presented to the ER with complain of worsening numbness in the right lower extremity, primarily from the knee to the toes. He reported back pain, which started on 26 May, while bending at work. He complained of worsening back pain since 1 week, with sensation of pulling, pressure like in the back, which increases on lying down and sitting up, relieves on lying to the side. He has associated numbness in the right leg which has been worsening since the last week. He reported difficulty in ambulation. His leg gave out, resulting in a minor fall. He has been using a cane for support due to impaired ambulation. He also complained of sciatic nerve associated back pain, which increases on bending down and sitting for long time. He denied any motor weakness, bowel or bladder dysfunction, incontinence, fever, chills, chest pain, recent diarrhea, or other associated symptoms. ROS: Constitutional: Denies weight loss, fever and chills. HEENT: Denies changes in vision and hearing. Respiratory: Denies shortness of breath and cough Cardiovascular: Denies chest discomfort or palpitations GI: Denies abdominal pain, nausea, vomiting and diarrhea. : Denies dysuria and urinary frequency. Musculoskeletal: Denies myalgias and joint pain Skin: Denies rash and pruritus. Neurological: Numbness in right lower extremity. Motor difficulty in the right foot. 06/20/2025: He was examined at bedside today. He continues to complain of numbness of the right leg. He does not follow with PCP. CT revealed severe spinal stenosis, pending MRI, consulted spinal surgery. Follow WBC count, prednisolone discontinued. Objective vital signs Vital Sign Date Time Temp Pulse Resp B/P (MAP) Pulse Ox O2 Delivery O2 Flow Rate FiO2 06/20/25 12:48 98.1 71 17 143/72 (95) 97 98.1 06/20/25 07:30 Room Air* 0 21 medications Current Medications Medications Dose Ordered Sig/Jarrod Route Start Time Stop Time Status Last Admin Dose Admin Sodium Chloride 10 ml Q8HR IV 06/19/25 22:00 06/20/25 13:35 10 ML Acetaminophen/ Hydrocodone Bitart 1 tab Q4HP PRN PO 06/19/25 21:45 06/20/25 12:37 1 TAB Ondansetron HCl 4 mg Q4HP PRN IV 06/19/25 21:45 Docusate Sodium 100 mg BIDPRN PRN PO 06/19/25 21:45 Acetaminophen 650 mg Q6HR PO 06/20/25 13:00 Examination General: Patient is in acute distress. Patient alert and oriented in person, place and time. Patient following commands. HEENT: Normocephalic, atraumatic, moist mucous membranes Respiratory/pulmonary: Clear lungs bilaterally, vesicular murmurs present in almost all lung crowell, no associated crackles or wheezes. Cardiovascular: Normal heart sounds S1 and S2 with no associated murmurs Abdomen: Abdomen nondistended, there is no pain to palpation in any of the abdominal quadrants, no palpable masses. Extremities: There is no peripheral edema present at the lower extremities. Peripheral Pulses: 3+ Radial (R). 3+ Radial (L). 3+ Dorsalis pedis (R). 3+ Dorsalis pedis(L) Skin: No rashes or pruritus, there is no sacral edema present at this time. Neurological: Power 0/5 on right plantar extension or flexion. Normal power in left leg and foot. Normal sensations in bilateral lower extremities. Other: Tenderness in the lumbar area laboratory and microbiology Laboratory Tests 06/20/25 03:25 Test 06/20/25 03:25 Range/Units Serum Glucose 100 74-106 mg/dL Problem List/Assessment/Plan Problem List/Assessment/Plan Severe lumbar spinal stenosis with Neurogenic claudication Sciatica Morbid obesity BMI 46.7 Chronic back pain likely due to severe lumbar spinal stenosis Right lower extremity numbness likely related to lumbar spinal stenosis Leukocytosis, likely reactive. No SIRS MRI of the spine without contrast pending Consider PT evaluation based on surgeon's recommendation Follow WBC count Continue pain management Spinal surgery consulted DIET: Cardiac diet BOWEL REGIMEN: Colace CODE STATUS: Goals of care discussed with patient at bedside for more than 35 minutes. Full code DISPOSITION: Med/surge Patient's status and plan discussed with the patient. Case discussed with Dr. Nugent Plan discussed with: Patient, Other (Patient and girlfriend on bedside) My Orders My Orders Orders - OSCAR JOHNSON RESIDENT Procedure Category Date Status Time Acetaminophen Tablet PHA 06/20/25 In Process (Tylenol Tablet) 13:00 Date of Service: Jun 20, 2025 Billing Provider: DELIA NUGENT MD Common Visit Codes: [id number] INP/OBS CARE(HIGH) OSCAR JOHNSON RESIDENT Jun 20, 2025 15:15 DELIA NUGENT MD Jun 20, 2025 23:04
[2025-06-20 17:00] VITALS: BP 156/93; PULSE 72; RESP 16; TEMP 98.2; O2SAT 96
[2025-06-20] MEDS: MORPHINE SULFATE INJ 2 MG/ml SYRG IV PRN (19:34)
[2025-06-20 21:00] VITALS: BP 156/96; PULSE 100; RESP 20; TEMP 99.2; O2SAT 94
[2025-06-20] MEDS ORDERED: cefTRIAXone 1GM/50ML D5W 50 ML IV SCH (22:00)
[2025-06-20] MEDS: FAMOTIDINE (10MG/ML) 2ML VL IV ONE (22:45)
[2025-06-20] MEDS: KETOROLAC TROMETH 30 MG/ML 1ML VIAL IV ONE (22:45)
[2025-06-21] VITALS (8 sets, daily range): BP systolic 110–125; BP diastolic 62–83; PULSE 64–88; RESP 16–18; TEMP 97–98.4; O2SAT 94–98
[2025-06-21] MEDS ORDERED: KETOROLAC TROMETH 30 MG/ML 1ML VIAL IV PRN
[2025-06-21] MEDS: FAMOTIDINE (10MG/ML) 2ML VL IV SCH (09:25)
--- NOTE | 2025-06-21 09:34 | DVHINCON2 ---
Consultation - Spinal Surgery Date Seen: Jun 21, 2025 Referring Physician Referring Physician Attending Doctor: Meera Zuleta Resident Reason for Consultation Low back pain and leg numbness History of Present Illness History of Present Illness History of Present Illness The patient is a 29-year-old male with a past medical history of possible lumbar radiculopathy and sciatica, who presents with a chief complaint of worsening numbness in the right lower extremity, primarily from the knee to the toes. Symptoms began approximately four days ago and have progressively worsened. The patient reports that the numbness is affecting his mobility, and a few days ago, his leg gave out, resulting in a minor fall. He is currently using a cane for support due to impaired ambulation. He also reports a history of sciatica, with pain that typically radiates down both legs and worsens with forward flexion of the lower back. The patient denies any motor weakness, bowel or bladder dysfunction, incontinence, fever, chills, chest pain, recent diarrhea, or other associated symptoms Past Medical/Surgical History Past Medical/Surgical History Past Medical History (Other): Morbid obesity, sciatica Surgical History: Denies all surgeries Family and Social History Family and Social History Family History Family History: Reviewed,noncontributory to illness Social History Smoker: Cigarettes Alcohol: Denies ETOH Use Drugs: Denies Drug Use Lives In: Home Allergies and medications Allergies: Coded Allergies: NO KNOWN ALLERGIES (Unverified , 05/31/23) Home Meds Active Scripts Prednisone (Prednisone) 20 Mg Tab, 60 MG PO DAILY, #21 TAB Prov:BRYANT BRINK 06/11/25 Tramadol HCl (Tramadol HCl) 50 Mg Tab, 50 MG PO BID, #20 TAB Prov:BRYANT BRINK 06/11/25 Ibuprofen (Ibuprofen) 800 Mg Tab, 1 TAB PO TID, #30 TAB Prov:BRYANT BRINK 05/27/25 Acetaminophen (Acetaminophen) 500 Mg Tab, 500 MG PO TIDP PRN for 10 Days, #30 TAB 0 Refills Prov:NASIM CASAS NP 06/23/24 Lidocaine (LIDODERM 5% TOPICAL PATCH) 1 Patch Ph, 1 PATCH TOP DAILY for 30 Days, #30 PATCH 0 Refills Prov:NASIM CASAS NP 06/23/24 Tramadol Hcl (Tramadol Hcl) 50 Mg Tab, 50 MG PO Q6HPRN PRN for 7 Days, #28 TAB 0 Refills Prov:NASIM CASAS IT SERVICE DELIVERY MANAGER 06/23/24 Cyclobenzaprine Hcl (Cyclobenzaprine Hcl) 5 Mg Tab, 1 TAB PO QHSP PRN for 30 Days, #30 TAB 0 Refills Prov:NASIM CASAS IT SERVICE DELIVERY MANAGER 06/03/24 Prednisone (Prednisone) 20 Mg Tab, 40 MG PO DAILY for 5 Days, #10 TAB 0 Refills Prov:NASIM CASAS IT SERVICE DELIVERY MANAGER 06/03/24 Ibuprofen Micronized (Ibuprofen) 800 Mg Tab, 800 MG PO TIDWMEALS for 14 Days, #42 TAB 0 Refills Prov:NASIM CASAS IT SERVICE DELIVERY MANAGER 06/03/24 Ibuprofen (Ibuprofen) 400 Mg Tab, 1 TAB PO Q6HPRN for 10 Days, #40 TAB Prov:ANNETTE CAPUTO [facility] 05/04/24 Ergocalciferol (VITAMIN D 94696 UNIT) 50,000 [place], [address] UNIT PO Q7D for 30 Days, #10 CAP Prov:ANNETTE CAPUTO [facility] 05/04/24 Cyanocobalamin (Gnp Vitamin B12) 500 Mcg Tab, 1000 MCG PO DAILY for 30 Days, #60 TAB Prov:ANNETTE CAPUTO RESIDENT 05/04/24 Cephalexin (KEFLEX CAPSULE) 250 Mg Cp, 250 MG PO Q6HR for 5 Days, #20 CAP Prov:ANNETTE CAPUTO RESIDENT 05/04/24 Review of systems Review of Systems: MSK:Abnormal (Reports weakness in his right leg), NEURO:Abnormal (Right lower extremity pain and numbness, sudden weakness causing his leg to give out, it subsequently turning into a fall) Examination Vital signs Imaging ORDERING PHYSICIAN: MEERA ZULETA RESIDENT PROCEDURE(s): MSL - LUMBAR SPINE WO CONTRAST REASON: lumbar spinal stenosis lt leg numbness ORDER NUMBER(s): [id number], ACCESSION NUMBER(s): [id number] MRI lumbar spine HISTORY: lumbar spinal stenosis lt leg numbness Comparison: 04/12/2023 TECHNIQUE: MR was performed with a surface coil at 1.5 T magnet. Sagittal, axial and coronal T1 and T2-weighted images were obtained. FINDINGS: Lumbar vertebrae normal in height signal intensity and alignment At L1-2 no narrowing of the central canal and neural foramina At L2-3 there is a broad-based left paracentral and lateral 12 mm disc protrusion causing moderately severe narrowing of the left side of the central canal and left neural foramina At L3-4 broad-based right paracentral 6 mm disc protrusion causing moderately severe narrowing of the right side of the central canal L4-5 broad-based right paracentral 6 mm disc protrusion causing moderately severe narrowing of the right side of the central canal L5-S1 focal left paracentral 5 mm disc protrusion effacing the anterior epidural fat Cord ends at T12-L1 is normal in appearance IMPRESSION: 1. Compared to previous exam no significant change. 2. At L2-3 broad-based left paracentral and lateral disc protrusion causing moderately severe narrowing of the left side of the central canal and of the left neural foramina 3. At at L3-4 and L4-5 broad-based right paracentral disc protrusions causing moderately severe narrowing of the right central canal 4. At L5-S1 5 mm left paracentral disc protrusion RING PHYSICIAN: SHAAN MASON MD PROCEDURE(s): LS2CT - LS SPINE WO CONTRAST REASON: low back pain RLE weak, numb ORDER NUMBER(s): [id number], ACCESSION NUMBER(s): [id number] EXAM: CT LS SPINE WO CONTRAST INDICATION: low back pain RLE weak, numb TECHNIQUE: Axial images of the lumbar spine have been obtained along with coronal and sagittal reformatted images. CT scans at this facility use dose modulation, iterative reconstruction, and/or weight based dosing when appropriate to reduce radiation dose to as low as reasonably achievable. COMPARISON: XY LUMBAR SPINE 3 VIEW on DOS: 06/11/25, MRI LUMBAR SPINE WO CONTRAST on DOS: 06/12/23 Dose: CTDIvol: 36.46 mGy, DLP: 1304.03 mGy.cm FINDINGS: There is no acute displaced fracture. There are degenerative changes of the lumbar spine characterized by endplate osteophytosis and intervertebral disc space narrowing. The paraspinal soft tissues are unremarkable. LEVEL BY LEVEL DISCUSSION BELOW: T12-L1: Unremarkable. L1-L2: Unremarkable. L2-L3: There is a disc protrusion with associated osteophyte which effaces the thecal sac and contributes to severe spinal stenosis. There is facet arthropathy. L3-L4: There is a disc protrusion with associated osteophyte which effaces the thecal sac. There is prominent facet arthropathy. There is severe spinal canal stenosis and at least mild bilateral neural foraminal stenosis. L4-L5: There is a disc protrusion with associated osteophyte which effaces thecal sac. There is prominent facet arthropathy. There is severe spinal canal stenosis and at least mild bilateral neural foraminal stenosis. L5-S1: There is a disc protrusion with associated osteophyte which effaces the thecal sac. There is facet arthropathy. There is at least moderate bilateral neural foraminal stenosis. IMPRESSION: 1. Multilevel severe spinal canal stenosis. Please see above discussion. MRI of the lumbar spine is suggested in further evaluation. Vital Signs Date Time Temp Pulse Resp B/P (MAP) Pulse Ox O2 Delivery O2 Flow Rate FiO2 06/21/25 08:00 16 Room Air* 0 21 06/21/25 05:00 98.3 88 110/65 (80) 98 98.3 Medications Current Medications Medications (Trade) Dose Ordered Sig/Jarrod Route PRN Reason Start Time Stop Time Status Last Admin Ceftriaxone Sodium 50 ml @ 100 mls/hr DAILY@2200 IV 06/20/25 22:00 06/19/25 22:07 DC Acetaminophen (Tylenol Tablet) 650 mg Q6HR PO 06/20/25 13:00 06/21/25 06:15 Ketorolac Tromethamine (Toradol Injection) 15 mg Q6HPRN PRN IV MODERATE PAIN (4-6 PAIN SCALE) 06/21/25 00:00 06/26/25 00:00 Famotidine (Pepcid Injection) 20 mg DAILY IV 06/21/25 10:00 06/21/25 09:25 Morphine Sulfate 1 mg Q6HP PRN IV SEVERE PAIN (7-10 PAIN SCALE) 06/20/25 19:00 06/20/25 19:34 Laboratory Labs Test 06/20/25 03:25 06/19/25 20:50 06/19/25 18:54 Range/Units White Blood Count 14.7 #H 4.4-10.8 10^3/uL Red Blood Count 5.68 4.5-5.90 10^6/uL Hemoglobin 16.7 13.5-17.5 g/dL Hematocrit 48.3 41.0-53.0 % Mean Corpuscular Volume 85.0 80.0-100.0 fL Mean Corpuscular Hemoglobin 29.4 28.0-32.0 pg Mean Corpuscular Hemoglobin Concent 34.6 32.0-36.0 g/dL Red Cell Distribution Width 14.6 H 11.8-14.3 % Platelet Count 312 140-450 10^3/uL Mean Platelet Volume 8.7 6.9-10.8 fL Neutrophils (%) (Auto) 72.3 37.0-80.0 % Lymphocytes (%) (Auto) 20.4 10.0-50.0 % Monocytes (%) (Auto) 5.8 0.0-12.0 % Eosinophils (%) (Auto) 1.0 0.0-7.0 % Basophils (%) (Auto) 0.5 0.0-2.0 % Neutrophils # (Auto) 10.6 H 1.6-8.6 10 ^3/uL Lymphocytes # (Auto) 3.0 0.4-5.4 10 ^3/uL Monocytes # (Auto) 0.9 0-1.3 10 ^3/uL Eosinophils # (Auto) 0.1 0-0.8 10 ^3/uL Basophils # (Auto) 0.1 0-0.2 10 ^3/uL Nucleated Red Blood Cells 0.1 % Sodium Level 138 136-145 mmol/L Potassium Level 4.2 3.5-5.1 mmol/L Chloride Level 102 98-107 mmol/L Carbon Dioxide Level 24 20-31 mmol/L Anion Gap 12 5-15 Blood Urea Nitrogen 15 9-23 mg/dL Creatinine 0.89 0.700-1.30 mg/dL Glomerular Filtration Rate Calc 118 >90 mL/min BUN/Creatinine Ratio 16.9 10.0-20.0 Serum Glucose 100 74-106 mg/dL Calcium Level 9.5 8.7-10.4 mg/dL Total Bilirubin 0.7 0.2-1.0 mg/dL Aspartate Amino Transferase (AST) 18 13-40 U/L Alanine Aminotransferase (ALT) 33 7-40 U/L Alkaline Phosphatase 64 46-116 U/L Total Protein 7.9 5.7-8.2 g/dL Albumin 4.7 3.2-4.8 g/dL Urine Color Light-yellow Yellow Urine Clarity Clear Clear Urine pH 5.0 5.0-9.0 Urine Specific [place] 1.016 1.001-1.035 Urine Protein Negative Negative Urine Ketones Negative Negative Urine Blood Negative Negative /uL Urine Nitrite Negative Negative Urine Bilirubin Negative Negative Urine Urobilinogen Normal Negative mg/dL Urine Leukocyte Esterase Negative Negative /uL Urine RBC None seen 0 - 3 /hpf Urine Microscopic WBC < 1 0-3 /HPF Urine Squamous Epithelial Cells Few <5 /hpf Urine Bacteria None seen None Seen /hpf Urine Hyaline Casts Few 0 - 2 /lpf Urine Glucose Normal Normal mg/dL Examination: GENERAL:Normal, HEENT:Normal, NECK:Normal, LUNGS:Normal, CVS:Normal, ABDOMEN:Normal, MSK:Abnormal (Right lower extremity weakness, numbness from the knee to the foot 4/5 to the right lower extremity, 5/5 to the left lower extremity), SKIN:Normal, NEURO:Abnormal (See musculoskeletal assessment), :Normal Problem List/Assessment/Plan Problems: (1) Lumbar stenosis with neurogenic claudication (2) Herniated lumbar intervertebral disc Assessment and Plan Multilevel severe spinal canal stenosis MRI shows 1. L2-3 broad-based left paracentral and lateral disc protrusion causing moderately severe narrowing of the left side of the central canal and of the left neural foramina 2. At at L3-4 and L4-5 broad-based right paracentral disc protrusions causing moderately severe narrowing of the right central canal 3. At L5-S1 5 mm left paracentral disc protrusion Patient has a sided to choose conservative management with physical therapy and pain management prior to endorsing approval for spine surgery. Patient is actually ambulating in the room with tolerable pain at this time. Suggest follow up with his PCP and obtain a referral for spine surgery with Dr Carlos Mcdermott Call [phone] for a appointment, or to change or confirm your appointment [id number] [facility], [address] [id number] Patient is cleared to discharge if physical therapy has been able to work with patient and he is safe to discharge with a steady gait There are no barriers to discharge from a spine surgery perspective as long as he agrees to follow up. Continue supportive measures per admitting team's discretion Adequate pain management which is to include muscle relaxers- order placed for cyclobenzaprine 10 mg q.8 hours to relieve muscle spasms to the lumbar region and enhance ambulation Physical therapy evaluation for treatment recommendations and safe discharge planning Call with latesha Arroyo [facility] Orthopaedic Spine Surgery nurse practitioner For Dr David Mcdermott Patient was examined, chart reviewed, labs evaluated, and diagnostic studies and findings analyzed. Case was discussed with Dr. Carlos Mcdermott who formulated the plan of care. This medical document was created using an electronic medical record system with [employer] dictation system. Although this document has been carefully reviewed, there might still be some phonetic and typographical errors. These areas are purely typographical due to imperfections of the software programs, and do not reflect any compromise in the patient's medical care. Plan discussed with Plan discussed with: Patient, Other (Esthela LLOYD) DEE ARROYO NP Jun 21, 2025 09:34
[2025-06-21] MEDS ORDERED: CYCLOBENZAPRINE HCL 10 MG TAB PO PRN (10:45)
[2025-06-21] MEDS: CYCLOBENZAPRINE HCL 10 MG TAB PO ONE (11:06)
[2025-06-21] MEDS: CYCLOBENZAPRINE HCL 10 MG TAB PO SCH (13:17)
--- NOTE | 2025-06-21 13:32 | DVH ---
MRI lumbar spine HISTORY: lumbar spinal stenosis lt leg numbness Comparison: 04/12/2023 TECHNIQUE: MR was performed with a surface coil at 1.5 T magnet. Sagittal, axial and coronal T1 and T 2-weighted images were obtained. FINDINGS: Lumbar vertebrae normal in height signal intensity and alignment At L1-2 no narrowing of the central canal and neural foramina At L2-3 there is a broad-based left paracentral and lateral 12 mm disc protrusion causing moderately severe narrowing of the left side of the central canal and left neural foramina At L3-4 broad-based right paracentral 6 mm disc protrusion causing moderately severe narrowing of the right side of the central canal L4-5 broad-based right paracentral 6 mm disc protrusion causing moderately severe narrowing of the ri ght side of the central canal L5-S1 focal left paracentral 5 mm disc protrusion effacing the anterior epidural fat Cord ends at T12-L1 is normal in appearance IMPRESSION: 1. Compared to previous exam no significant change. 2. At L2-3 broad-based left paracentral and lateral disc protrusion causing moderately severe narrowi ng of the left side of the central canal and of the left neural foramina 3. At at L3-4 and L4-5 broad-based right paracentral disc protrusions causing moderately severe narro wing of the right central canal 4. At L5-S1 5 mm left paracentral disc protrusion
--- NOTE | 2025-06-21 17:40 | DVHPNRES ---
Progress Note Date Seen: Jun 21, 2025 Resident Creating Document: TIM SUAREZ Medical Necessity Reason Pt with a Central, PICC or Fol: No Subjective Review of Systems 06/21/2025 interval events: 29-year-old male with a past medical history of lumbar radiculopathy and sciatica presented to the ER with complaints of worsening numbness in the right lower extremity. This morning when I spoke to the patient he reported right- sided weakness, he denies any chest pain, shortness of breath, fever, abdominal pain or any other complaints. Physical examination reveals, right-sided diminished sensory and motor function. His previous CT scan revealed multi level spinal canal stenosis, completed MRI which shows protrusion of disc with severe stenosis. Consulted spinal surgery who suggested conservative management at this point and follow up as outpatient. Discharge planning undergoing. Objective vital signs Vital Sign Date Time Temp Pulse Resp B/P (MAP) Pulse Ox O2 Delivery O2 Flow Rate FiO2 06/21/25 13:00 98.3 68 17 113/62 (79) 95 98.3 06/21/25 08:00 Room Air* 0 21 Total Intake and Output 06/20/25 06/20/25 06/21/25 15:00 23:00 07:00 Intake Total 0 ml 1935 ml Output Total 450 ml Balance -450 ml 1935 ml medications Current Medications Medications Dose Ordered Sig/Jarrod Route Start Time Stop Time Status Last Admin Dose Admin Sodium Chloride 10 ml Q8HR IV 06/19/25 22:00 06/21/25 09:25 10 ML Acetaminophen 650 mg Q6HR PO 06/20/25 13:00 06/21/25 11:06 650 MG Ketorolac Tromethamine 15 mg Q6HPRN PRN IV 06/21/25 00:00 06/26/25 00:00 Morphine Sulfate 1 mg Q6HP PRN IV 06/20/25 19:00 06/21/25 09:57 1 MG Dexamethasone Sodium Phosphate 10 mg Q6HR IV 06/21/25 12:00 06/21/25 11:06 10 MG Cyclobenzaprine HCl 10 mg Q8HR PO 06/21/25 14:00 Examination Patient is lying on bed General Appearance: Alert, Oriented X3, Cooperative, Not in acute distress HEENT: Atraumatic, Mucous membranes moist/pink Respiratory: Clear to auscultation, Normal air movement, No added sounds Cardiovascular: Regular rate, Normal S1, Normal S2, No murmurs Abdominal: Active bowel sounds, Soft, no distention, no tenderness Extremities: No edema, Normal pulses, No tenderness/swelling Skin: No Significant rash, except past surgical scars Neuro: Normal speech, diminished sensory and motor function in the right leg, weakness present in plantar extension and flexion. Psych/Mental Status: Mental status NL, Mood NL Nurse was there as information and data architect analyst during examination laboratory and microbiology Laboratory Tests 06/20/25 03:25 Test 06/20/25 03:25 Range/Units Serum Glucose 100 74-106 mg/dL Labs and/or images reviewed: Labs reviewed by me, Image(s) reviewed by me Problem List/Assessment/Plan Problem List/Assessment/Plan Severe lumbar spinal stenosis with neurogenic claudication Sciatica Chronic back pain likely due to severe lumbar spinal stenosis Right lower extremity and amylase likely related to lumbar spinal stenosis Leukocytosis likely reactive. No SIRS. Currently on Dexamethasone 10 mg IV q.6 ordered Completed MRI which shows L2-3 broad-based left paracentral and lateral disc protrusion causing moderately severe narrowing of the left side of the central canal and of the left neural foramina. At at L3-4 and L4-5 broad-based right paracentral disc protrusions causing moderately severe narrowing of the right central canal. At L5-S1 5 mm left paracentral disc protrusion Spinal surgery consult: Patient decided on conservative management and physical therapy at this time, in pain management prior to endorsing approval of spine surgery. Follow up with PCP and referral to spine surgery as outpatient. Adequate pain management which is to include muscle relaxers- order placed for cyclobenzaprine 10 mg q.8 hours to relieve muscle spasms to the lumbar region and enhance ambulation Physical therapy evaluation for treatment recommendations and safe discharge planning Morbid obesity Patient was counseled on healthy lifestyle modifications for more than 15 minutes GI prophylaxis: Not indicated DVT prophylaxis: Not Indicated Diet: Low calorie cardiac diet Goals of care discussed with the patient for more than 27 minutes: Full code status Case discussed with Dr. Espino, patient and nurse: Completed imaging which evidence disc protrusion with [id number] narrowing of right central canal. Planning on conservative management at this point, patient is ambulating with no difficulty. Discharge planning underway, with home health with physical therapy sessions. Cosigning senior Resident: Libby Caupto, agree with progress note Plan discussed with: Patient, Other (RN) Date of Service: Jun 21, 2025 Billing Provider: DEMARCUS ESPINO MD Common Visit Codes: [id number] INP/OBS CARE(HIGH) TIM SUAREZ RESIDENT Jun 21, 2025 17:40 LIBBY CAPUTO RESIDENT Jun 22, 2025 06:28 DEMARCUS ESPINO MD Jun 24, 2025 22:30
[2025-06-21 18:41] LABS: Hematocrit 46.5 % (41.0-53.0); Hemoglobin 16.2 g/dL (13.5-17.5); Mean Corpuscular Hemoglobin 29.4 pg (28.0-32.0); Mean Corpuscular Volume 84.6 fL (80.0-100.0); Nucleated Red Blood Cells % 0.0 %
[2025-06-21 18:59] LABS: Alanine Aminotransferase 31 U/L (7-40); Alkaline Phosphatase 67 U/L (46-116); Anion Gap 9 (5-15); BUN/Creatinine Ratio 17.3 (10.0-20.0); Blood Urea Nitrogen 14 mg/dL (9-23); Calcium 9.5 mg/dL (8.7-10.4); Carbon Dioxide 24 mmol/L (20-31); Chloride 102 mmol/L (98-107); Potassium 4.1 mmol/L (3.5-5.1); Total Protein 8.2 g/dL (5.7-8.2)
[2025-06-21 19:00] LABS: Bilirubin, Total 1.1 mg/dL (0.2-1.0)
[2025-06-21] MEDS ORDERED: CYCLOBENZAPRINE HCL 10 MG TAB PO SCH (19:00)
[2025-06-21 19:08] LABS: Albumin 4.8 g/dL (3.2-4.8); Glucose 134 mg/dL (74-106); Sodium 135 mmol/L (136-145)
[2025-06-22 01:00] VITALS: BP 128/77; PULSE 53; RESP 19; TEMP 98.1; O2SAT 98
[2025-06-22 05:00] VITALS: BP 116/83; PULSE 85; RESP 17; TEMP 97.2; O2SAT 98
[2025-06-22] MEDS ORDERED: METH4PAK PO (06:57)
[2025-06-22 09:00] VITALS: BP 119/85; PULSE 69; RESP 14; TEMP 97.5; O2SAT 95
--- NOTE | 2025-06-22 15:07 | DVHDSRES ---
Discharge Summary Date of Admission Resident Creating Document: TIM SHI RESIDENT Jun 19, 2025 at 22:03 Date of Discharge: Jun 22, 2025 Admitting Diagnosis Severe lumbar spinal stenosis with neurogenic claudication Labs/Diagnostic Data: Laboratory Results Test 06/21/25 18:29 06/19/25 20:50 06/19/25 18:54 White Blood Count 9.8 10^3/uL (4.4-10.8) Red Blood Count 5.50 10^6/uL (4.5-5.90) Hemoglobin 16.2 g/dL (13.5-17.5) Hematocrit 46.5 % (41.0-53.0) Mean Corpuscular Volume 84.6 fL (80.0-100.0) Mean Corpuscular Hemoglobin 29.4 pg (28.0-32.0) Mean Corpuscular Hemoglobin Concent 34.7 g/dL (32.0-36.0) Red Cell Distribution Width 14.1 % (11.8-14.3) Platelet Count 300 10^3/uL (140-450) Mean Platelet Volume 8.4 fL (6.9-10.8) Neutrophils (%) (Auto) 91.8 % (37.0-80.0) Lymphocytes (%) (Auto) 7.0 % (10.0-50.0) Monocytes (%) (Auto) 1.0 % (0.0-12.0) Eosinophils (%) (Auto) 0.0 % (0.0-7.0) Basophils (%) (Auto) 0.2 % (0.0-2.0) Neutrophils # (Auto) 9.0 10 ^3/uL (1.6-8.6) Lymphocytes # (Auto) 0.7 10 ^3/uL (0.4-5.4) Monocytes # (Auto) 0.1 10 ^3/uL (0-1.3) Eosinophils # (Auto) 0 10 ^3/uL (0-0.8) Basophils # (Auto) 0 10 ^3/uL (0-0.2) Nucleated Red Blood Cells 0.0 % Sodium Level 135 mmol/L (136-145) Potassium Level 4.1 mmol/L (3.5-5.1) Chloride Level 102 mmol/L (98-107) Carbon Dioxide Level 24 mmol/L (20-31) Anion Gap 9 (5-15) Blood Urea Nitrogen 14 mg/dL (9-23) Creatinine 0.81 mg/dL (0.700-1.30) Glomerular Filtration Rate Calc 122 mL/min (>90) BUN/Creatinine Ratio 17.3 (10.0-20.0) Serum Glucose 134 mg/dL (74-106) Calcium Level 9.5 mg/dL (8.7-10.4) Total Bilirubin 1.1 mg/dL (0.2-1.0) Aspartate Amino Transferase (AST) 17 U/L (13-40) Alanine Aminotransferase (ALT) 31 U/L (7-40) Alkaline Phosphatase 67 U/L (46-116) Total Protein 8.2 g/dL (5.7-8.2) Albumin 4.8 g/dL (3.2-4.8) Urine Color Light-yellow (Yellow) Urine Clarity Clear (Clear) Urine pH 5.0 (5.0-9.0) Urine Specific Wheeler 1.016 (1.001-1.035) Urine Protein Negative (Negative) Urine Ketones Negative (Negative) Urine Blood Negative /uL (Negative) Urine Nitrite Negative (Negative) Urine Bilirubin Negative (Negative) Urine Urobilinogen Normal mg/dL (Negative) Urine Leukocyte Esterase Negative /uL (Negative) Urine RBC None seen /hpf (0 - 3) Urine Microscopic WBC < 1 /HPF (0-3) Urine Squamous Epithelial Cells Few /hpf (<5) Urine Bacteria None seen /hpf (None Seen) Urine Hyaline Casts Few /lpf (0 - 2) Urine Glucose Normal mg/dL (Normal) Vitamin B12 Level 299 pg/mL (211-911) Other Laboratory Tests 06/21/25 18:29 Brief Hx & Hospital Course: A 29-year-old male with PMHx: Lumbar radiculopathy, sciatica, morbid obesity. Patient presented to the ER with worsening numbness and weakness of the right lower extremity. He denied chest pain, dyspnea, fever, abdominal pain, or other systemic complaints. On exam, he had right-sided weakness with diminished sensory and motor function. Prior CT revealed multilevel spinal canal stenosis. MRI showed L2-3 broad-based left paracentral and lateral disc protrusion with moderately severe narrowing of the left central canal and foramina; L3-4 and L4- 5 broad-based right paracentral disc protrusions causing moderately severe narrowing of the right central canal; L5-S1 left paracentral disc protrusion. Spinal surgery was consulted and recommended conservative management at this time with outpatient follow-up. Patient was started on dexamethasone 10 mg IV q6h and cyclobenzaprine 10 mg q8h PRN for muscle spasms. Pain management and physical therapy were initiated during admission. He was counseled on weight reduction and healthy lifestyle modifications (>15 minutes counseling provided). Complications: None during hospitalization. General Appearance: Alert, Oriented X3, Cooperative, Not in acute distress HEENT: Atraumatic, Mucous membranes moist/pink Respiratory: Clear to auscultation, Normal air movement, No added sounds Cardiovascular: Regular rate, Normal S1, Normal S2, No murmurs Abdominal: Active bowel sounds, Soft, no distention, no tenderness Extremities: No edema, Normal pulses, No tenderness/swelling Skin: No Significant rash, except past surgical scars Neuro: Normal speech, diminished sensory and motor function in the right leg (right foot drop), weakness present in plantar extension and flexion. Psych/Mental Status: Mental status NL, Mood NL Condition at Discharge: Stable, ambulating with assistance, pain controlled. Discharge Medications: Cyclobenzaprine 10 mg q8h PRN muscle spasms Continue medrol pack taper per instructions Analgesics as needed Discharge Instructions: Follow up with PCP and spine surgery clinic as outpatient Continue physical therapy: HH Maintain low-calorie diet and weight loss efforts Return to ER if worsening weakness, new bowel/bladder incontinence, fever, or severe uncontrolled pain Follow-up Appointments: PCP within 1 week, spine surgery and pain managment outpatient referral. Case discussed with Dr Srinivas Barth senior Resident: Annette Caputo, agree with discharge summary. Consults/Reason for consult spine surgery due to MRI findings Operations or Procedures MRI lumbar spine HISTORY: lumbar spinal stenosis lt leg numbness Comparison: 04/12/2023 TECHNIQUE: MR was performed with a surface coil at 1.5 T magnet. Sagittal, axial and coronal T1 and T2-weighted images were obtained. FINDINGS: Lumbar vertebrae normal in height signal intensity and alignment At L1-2 no narrowing of the central canal and neural foramina At L2-3 there is a broad-based left paracentral and lateral 12 mm disc protrusion causing moderately severe narrowing of the left side of the central canal and left neural foramina At L3-4 broad-based right paracentral 6 mm disc protrusion causing moderately severe narrowing of the right side of the central canal L4-5 broad-based right paracentral 6 mm disc protrusion causing moderately severe narrowing of the right side of the central canal L5-S1 focal left paracentral 5 mm disc protrusion effacing the anterior epidural fat Cord ends at T12-L1 is normal in appearance IMPRESSION: 1. Compared to previous exam no significant change. 2. At L2-3 broad-based left paracentral and lateral disc protrusion causing moderately severe narrowing of the left side of the central canal and of the left neural foramina 3. At at L3-4 and L4-5 broad-based right paracentral disc protrusions causing moderately severe narrowing of the right central canal 4. At L5-S1 5 mm left paracentral disc protrusion Condition at Discharge: Stable Final Diagnosis/Problems List Severe lumbar spinal stenosis with neurogenic claudication Sciatica Chronic back pain likely due to severe lumbar spinal stenosis Right lower extremity and amylase likely related to lumbar spinal stenosis Leukocytosis likely reactive. No SIRS. Morbid obesity Discharge Disposition: Home Discharge Instruct/Medications Diet: Consistent carbohydrate Activity: Light activity Follow Up/Referral: dc clinic, patient will need fu with spine surgery and pain managment Medications: see prescription Scheduled Cyanocobalamin (Gnp Vitamin B12), 1,000 MCG PO DAILY Ergocalciferol (Vitamin D 19503 Unit), 50,000 UNIT PO Q7D Ibuprofen (Ibuprofen), 1 TAB PO TID Lidocaine (Lidoderm 5% Topical Patch), 1 PATCH TOP DAILY Methylprednisolone (Medrol Dosepak), 4 MG PO UD Scheduled PRN Acetaminophen (Acetaminophen), 500 MG PO TIDP PRN Cyclobenzaprine Hcl (Cyclobenzaprine Hcl), 1 TAB PO QHSP PRN Discontinued Medications Cephalexin (Keflex Capsule), 250 MG PO Q6HR Ibuprofen (Ibuprofen), 1 TAB PO Q6HPRN Ibuprofen Micronized (Ibuprofen), 800 MG PO TIDWMEALS Prednisone (Prednisone), 40 MG PO DAILY Prednisone (Prednisone), 60 MG PO DAILY Tramadol HCl (Tramadol HCl), 50 MG PO BID Tramadol Hcl (Tramadol Hcl), 50 MG PO Q6HPRN PRN Discharge Statement: "Patient was advised to return to the ER or call 911 if any headaches, dizziness, shortness of breath, chest pain, abdominal pain, bleeding, fevers, or worsening of medical condition. Patient was counseled about treatment plan, medications, possible side effects, patientverbalized understanding. All questions were answered to the best of my ability. This discharge took greater then 30 minutes in planning, reviewing documentation, counseling the patient, and discussing with other team members." ASSESSMENT ASSESSMENT Assessment spinal stenosis TIM SHI RESIDENT Jun 22, 2025 15:07 ANNETTE CAPUTO RESIDENT Jun 24, 2025 21:28
[2025-06-23 01:00] VITALS: BP 115/72; PULSE 83; RESP 17; TEMP 98.1; O2SAT 95
== END 2025-06-22 13:33 | disposition home or self-care (01) | DRG 347 ==
LOC: ER 15:58 → OVERFLOW 22:03 → CENTRAL 06-21 03:30
PROVIDERS: ADMIT Student in an Organized Health Care Education/Training Program; ATTEND Student in an Organized Health Care Education/Training Program
DX: M48.062 Spinal stenosis, lumbar region with neurogenic claudication (principal); D72.829 Elevated white blood cell count, unspecified; E66.01 Morbid (severe) obesity due to excess calories; G89.29 Other chronic pain; Z68.42 Body mass index [BMI] 45.0-49.9, adult; F17.210 Nicotine dependence, cigarettes, uncomplicated; M54.41 Lumbago with sciatica, right side
CPT/HCPCS: 36415; 70450; 71045; 72131; 72148; 80048; 80053; 81001; 82607; 85025; 96365; 96375; G0378; J1100; J1885; J3490